=== PATIENT | female | born 1955 | race Asian ===

== ENCOUNTER 2018-05-24 08:52 | Observation (INO) | payer BC ==
[2018-05-24] MEDS ORDERED: METOPROLOL TAR 25 MG TAB ONE (09:35)
[2018-05-24] MEDS ORDERED: MORPHINE 2 MG/ML SYR ONE (09:35)
[2018-05-24] MEDS ORDERED: ONDANSETRON 4 MG/2 ML VIAL ONE (09:35)
[2018-05-24] MEDS ORDERED: ASPIRIN 81 MG CHEWABLE TABLET ONE (09:35)
[2018-05-24] MEDS ORDERED: FAMOTIDINE 20 MG/2 ML VIAL IV ONE (09:36)
[2018-05-24] MEDS ORDERED: NA CHLORIDE 0.9% 1,000 ML ONE (09:36)
[2018-05-24] MEDS ORDERED: ENOXAPARIN 80 MG/0.8 ML SQ ONE (09:36)
[2018-05-24 09:39] LABS: Absolute Lymphocytes (CBC) 1.6 K/uL (0.7-4.9); Absolute Monocytes 0.2 K/uL (0.1-1.3); Absolute Neutrophil 2.5 K/uL (1.8-8.0); Basophils % 0.8 % (0-1.3); Hematocrit 37.5 % (36.0-45.0); Lymphocytes % 35.8 % (15.3-44.8); MCH 33.3 pg (27.0-35.0); MCV 96.8 fL (80-100); MPV 7.5 fL (7.6-11.3); Monocytes % 4.3 % (3.3-12.3); RBC Red Blood Cell Count 3.87 M/uL (3.86-4.86)
[2018-05-24 09:40] LABS: Protime INR 0.98
[2018-05-24 09:54] LABS: ALT/SGPT 18 U/L (12-78); AST/SGOT 13 U/L (15-37); Albumin 3.7 g/dL (3.4-5.0); Alkaline Phosphatase 75 U/L (45-117); BUN Blood Urea Nitrogen 14 mg/dL (7-18); Bicarbonate 29 mmol/L (21-32); Bilirubin Direct 0.2 mg/dL (0-0.2); Bilirubin Total 0.4 mg/dL (0.2-1.0); Glucose Level 108 mg/dL (74-106); Magnesium 2.6 mg/dL (1.8-2.4); NT PRO-BNP 150 pg/mL (<125); Potassium 3.5 mmol/L (3.5-5.1); Protein, Total 7.2 g/dL (6.4-8.2); Sodium Level 143 mmol/L (136-145); Troponin (Emerg Dept Use Only) < 0.02 ng/mL (0.0-0.045)
--- NOTE | 2018-05-24 09:57 | RAD REPORT ---
EXAM DESCRIPTION: RAD - Chest Single View - 05/24/2018 9:27 am CLINICAL HISTORY: Left-sided chest pain radiating into the left arm COMPARISON: September 2010 TECHNIQUE: AP portable chest image was obtained 0922 hours . FINDINGS: No acute lung parenchymal process seen. Interstitial pattern is similar to the comparison. No mediastinal or hilar mass or lymphadenopathy suspected. Heart and vasculature are normal. No jay jay urable pleural effusion and no pneumothorax. No acute bony abnormality seen. No acute aortic findings suspected. IMPRESSION: No acute cardiopulmonary process. No significant change from comparison.
--- NOTE | 2018-05-24 09:58 | RAD REPORT ---
EXAM DESCRIPTION: US - Abdomen Exam Limited - 05/24/2018 9:38 am CLINICAL HISTORY: Abdominal pain COMPARISON: None. FINDINGS: A single large 2 centimeter gallstone is present near the fundus of the gallbladder. No ot her stones or sludge identifiable. There is no wall thickening or pericholecystic fluid. No common duct stone or biliary tree dilatation identified. IMPRESSION: Single large 2 centimeter gallstone. No other acute gallbladder or biliary tree finding.
--- NOTE | 2018-05-24 10:06 | ER ---
Nurse's Notes [facility] Name: Tess Deal Age: 62 yrs Sex: Female : 1955 Arrival Date: 05/24/2018 Time: 08:54 Bed 19 Private MD: Diagnosis: Chest pain, unspecified;Cholelithiasis Presentation: 05/24 08:56 Presenting complaint: Patient states: left sided chest pain with radiation to the left sv hand started last night with SOB. Transition of care: patient was not received from another setting of care. Onset of symptoms was May 23, 2018. Care prior to arrival: None. 08:56 Method Of Arrival: Ambulatory sv 08:56 Acuity: PRADEEP 3 sv 12:54 Risk Assessment: Do you want to hurt yourself or someone else? Patient reports no bp desire to harm self or others. Initial Sepsis Screen: Does the patient meet any 2 criteria? No. Patient's initial sepsis screen is negative. Does the patient have a suspected source of infection? No. Patient's initial sepsis screen is negative. Triage Assessment: 08:56 General: Appears in no apparent distress. uncomfortable, Behavior is calm, cooperative, sv appropriate for age. Pain: Complains of pain in anterior aspect of left upper chest and left breast Pain radiates to left hand Pain currently is 5 out of 10 on a pain scale. Pain began 1 day ago. Neuro: Level of Consciousness is awake, alert, obeys commands, Oriented to person, place, time, situation, Moves all extremities. Full function. Cardiovascular: Patient's skin is warm and dry. Respiratory: Reports shortness of breath Respiratory effort is even, unlabored, Respiratory pattern is regular, symmetrical. Historical: - Allergies: 08:57 No Known Allergies; sv - PSHx: 08:57 ; sv - Immunization history:: Adult Immunizations up to date. - Social history:: Smoking status: Patient/guardian denies using tobacco. - Family history:: not pertinent. - Ebola Screening: : Patient negative for fever greater than or equal to 101.5 degrees Fahrenheit, and additional compatible Ebola Virus Disease symptoms Patient denies exposure to infectious person Patient denies travel to an Ebola-affected area in the 21 days before illness onset No symptoms or risks identified at this time. Screenin:00 Abuse screen: Denies threats or abuse. Denies injuries from another. Nutritional bp screening: No deficits noted. Tuberculosis screening: No symptoms or risk factors identified. Fall Risk None identified. Assessment: 09:00 General: Appears in no apparent distress. comfortable, Behavior is calm, cooperative, bp appropriate for age. Pain: Complains of pain in chest and anterior aspect of left upper chest Pain currently is 6 out of 10 on a pain scale. Quality of pain is described as heavy. Pain: Pain radiates to left arm. Neuro: Level of Consciousness is awake, alert, obeys commands, Oriented to person, place, time, situation, Appropriate for age. Cardiovascular: Rhythm is sinus rhythm. Respiratory: Airway is patent Respiratory effort is even, unlabored, Respiratory pattern is regular, symmetrical. GI: No signs and/or symptoms were reported involving the gastrointestinal system. : No signs and/or symptoms were reported regarding the genitourinary system. EENT: No deficits noted. Derm: No deficits noted. Musculoskeletal: Circulation, motion, and sensation intact. Range of motion: intact in all extremities. 09:53 Reassessment: PT RETURNED FROM U/S. ECHO PENDING. bp 11:13 Reassessment: ECHO COMPLETED, ADMIT IN PROCESS. bp 12:51 Reassessment: PT TOMER WITH TECH FOR ADMIT. bp Vital Signs: 08:57 BP 139 / 85; Pulse 70; Resp 18; Temp 97.8; Pulse Ox 99% ; Weight 63.5 kg; Height 5 ft. sv 3 in. (160.02 cm); Pain 5/10; 09:00 BP 122 / 62; Pulse 67; Resp 14; Pulse Ox 99% ; bp 09:53 BP 121 / 72; Pulse 56; Resp 16; Pulse Ox 100% ; bp 11:13 BP 126 / 71; Pulse 47; Resp 19; Pulse Ox 98% ; bp 12:20 BP 140 / 86; Pulse 52; Resp 20; Pulse Ox 100% ; bp 08:57 Body Mass Index 24.80 (63.50 kg, 160.02 cm) sv ED Course: 08:54 Patient arrived in ED. tw3 08:56 Arm band placed on Patient placed in an exam room, on a stretcher. sv 08:57 Triage completed. sv 08:59 Marco Noland MD is Attending Physician. ayah 08:59 Gael Saha, NEVIN is Primary Nurse. bp 09:00 Patient has correct armband on for positive identification. Placed in gown. Bed in low bp position. Call light in reach. Side rails up X2. Adult w/ patient. residential monitor on. Pulse ox on. NIBP on. 09:00 Inserted saline lock: 20 gauge in right antecubital area, using aseptic technique. bp Blood collected. Patient maintains SpO2 saturation greater than 95% on room air. 09:20 Patient taken to ultrasound. luly 09:27 X-ray completed. Portable x-ray completed in exam room. Patient tolerated procedure jb2 well. 09:28 XRAY Chest (1 view) In Process Unspecified. EDMS 09:38 US Abdomen Limited In Process Unspecified. EDMS 09:47 Urine collected: clean catch specimen, clear. mh5 09:47 Urine Culture Sent. [facility] 10:05 Chela Blankenship MD is Hospitalizing Provider. ayah 12:53 No provider procedures requiring assistance completed. Patient admitted, IV remains in bp place. Administered Medications: 09:30 Drug: NS 0.9% 1000 ml Route: IV; Rate: 75 ml/hr; Site: right antecubital; bp 12:19 Follow up: IV Status: Infusion continued upon admission bp 09:30 Drug: Pepcid 20 mg Route: IVP; Site: right antecubital; bp 12:19 Follow up: Response: No adverse reaction bp 09:30 Drug: Aspirin 162 mg Route: PO; bp 12:19 Follow up: Response: No adverse reaction bp 09:30 Drug: morphine 2 mg Route: IVP; Site: right antecubital; bp 12:19 Follow up: Response: Pain is decreased bp 09:30 Drug: Zofran 4 mg Route: IVP; Site: right antecubital; bp 12:18 Follow up: Response: No adverse reaction bp 09:30 Drug: Lopressor 25 mg Route: PO; bp 12:18 Follow up: Response: No adverse reaction bp 09:30 Drug: Lovenox 1 mg/kg Route: Sub-Q; Site: left lower abdomen; bp 12:18 Follow up: Response: No adverse reaction bp Outcome: 10:05 Decision to Hospitalize by Provider. ayah 12:52 Admitted to Tele accompanied by tech, family with patient, via wheelchair, room 402, bp with chart, Report called to RAÚL ROONEY 12:54 Condition: improved bp 13:01 Patient left the ED. bp Signatures: Dispatcher [employer] Stefanie Bustillo RN RN Marco Farris MD MD cha Buechter, Jesse Tom Carvajal jd, Maria 5 Dagoberto, Val 3 Gael Saha, NEVIN RN bp Corrections: (The following items were deleted from the chart) 09:02 08:56 Presenting complaint: Patient states: left sided chest pain with radiation to the sv left hand started last night. sv
--- NOTE | 2018-05-24 10:06 | EDPHYS ---
Physician Documentation [facility] Name: Tess Deal Age: 62 yrs Sex: Female : 1955 Arrival Date: 05/24/2018 Time: 08:54 Bed 19 Private MD: ED Physician Marco Noland HPI: 05/24 09:12 This 62 yrs old Female presents to ER via Ambulatory with complaints of Chest ayah Pain. 09:12 The patient or guardian reports chest pain that is located primarily in the substernal ayah area, anterior chest wall, bilaterally. Onset: 3 day(s) ago. The pain radiates to the left arm. Associated signs and symptoms: Pertinent positives: shortness of breath. Associated signs and symptoms: Pertinent positives:. The chest pain is described as a pressure, squeezing. Modifying factors: The symptoms are alleviated by nothing. the symptoms are aggravated by supine. Severity of pain: At its worst the pain was moderate in the emergency department the pain is unchanged. Historical: - Allergies: 08:57 No Known Allergies; sv - PSHx: 08:57 ; sv - Immunization history:: Adult Immunizations up to date. - Social history:: Smoking status: Patient/guardian denies using tobacco. - Family history:: not pertinent. - Ebola Screening: : Patient negative for fever greater than or equal to 101.5 degrees Fahrenheit, and additional compatible Ebola Virus Disease symptoms Patient denies exposure to infectious person Patient denies travel to an Ebola-affected area in the 21 days before illness onset No symptoms or risks identified at this time. ROS: 09:12 Constitutional: Negative for fever, chills, and weight loss, Eyes: Negative for injury, ayah pain, redness, and discharge, ENT: Negative for injury, pain, and discharge, Neck: Negative for injury, pain, and swelling, Respiratory: Negative for shortness of breath, cough, wheezing, and pleuritic chest pain, Abdomen/GI: Negative for abdominal pain, nausea, vomiting, diarrhea, and constipation, Back: Negative for injury and pain, : Negative for injury, bleeding, discharge, and swelling, MS/Extremity: Negative for injury and deformity, Skin: Negative for injury, rash, and discoloration, Neuro: Negative for headache, weakness, numbness, tingling, and seizure, Psych: Negative for depression, anxiety, suicide ideation, homicidal ideation, and hallucinations, Allergy/Immunology: Negative for hives, rash, and allergies, Endocrine: Negative for neck swelling, polydipsia, polyuria, polyphagia, and marked weight changes, Hematologic/Lymphatic: Negative for swollen nodes, abnormal bleeding, and unusual bruising. 09:12 Cardiovascular: Positive for chest pain, of the chest. Exam: 09:12 Constitutional: This is a well developed, well nourished patient who is awake, alert, ayah and in no acute distress. Head/Face: Normocephalic, atraumatic. Eyes: Pupils equal round and reactive to light, extra-ocular motions intact. Lids and lashes normal. Conjunctiva and sclera are non-icteric and not injected. Cornea within normal limits. Periorbital areas with no swelling, redness, or edema. ENT: Nares patent. No nasal discharge, no septal abnormalities noted. Tympanic membranes are normal and external auditory canals are clear. Oropharynx with no redness, swelling, or masses, exudates, or evidence of obstruction, uvula midline. Mucous membranes moist. Neck: Trachea midline, no thyromegaly or masses palpated, and no cervical lymphadenopathy. Supple, full range of motion without nuchal rigidity, or vertebral point tenderness. No Meningismus. Chest/axilla: Normal chest wall appearance and motion. Nontender with no deformity. No lesions are appreciated. Cardiovascular: Regular rate and rhythm with a normal S1 and S2. No gallops, murmurs, or rubs. Normal PMI, no JVD. No pulse deficits. Respiratory: Lungs have equal breath sounds bilaterally, clear to auscultation and percussion. No rales, rhonchi or wheezes noted. No increased work of breathing, no retractions or nasal flaring. Abdomen/GI: Soft, non-tender, with normal bowel sounds. No distension or tympany. No guarding or rebound. No evidence of tenderness throughout. Back: No spinal tenderness. No costovertebral tenderness. Full range of motion. Skin: Warm, dry with normal turgor. Normal color with no rashes, no lesions, and no evidence of cellulitis. MS/ Extremity: Pulses equal, no cyanosis. Neurovascular intact. Full, normal range of motion. Neuro: Awake and alert, GCS 15, oriented to person, place, time, and situation. Cranial nerves II-XII grossly intact. Motor strength 5/5 in all extremities. Sensory grossly intact. Cerebellar exam normal. Normal gait. Psych: Awake, alert, with orientation to person, place and time. Behavior, mood, and affect are within normal limits. Vital Signs: 08:57 BP 139 / 85; Pulse 70; Resp 18; Temp 97.8; Pulse Ox 99% ; Weight 63.5 kg; Height 5 ft. sv 3 in. (160.02 cm); Pain 5/10; 09:00 BP 122 / 62; Pulse 67; Resp 14; Pulse Ox 99% ; bp 09:53 BP 121 / 72; Pulse 56; Resp 16; Pulse Ox 100% ; bp 11:13 BP 126 / 71; Pulse 47; Resp 19; Pulse Ox 98% ; bp 12:20 BP 140 / 86; Pulse 52; Resp 20; Pulse Ox 100% ; bp 08:57 Body Mass Index 24.80 (63.50 kg, 160.02 cm) sv MDM: 08:59 Patient medically screened. [facility] 09:15 Data reviewed: vital signs, nurses notes, lab test result(s), EKG, radiologic studies, [facility] plain films, ultrasound. 05/24 09:06 Order name: Basic Metabolic Panel; Complete Time: 10:03 bp 04 09:06 Order name: CBC with Diff; Complete Time: 10:03 bp 04 09:06 Order name: LFT's; Complete Time: 10:03 bp 12/04 09:06 Order name: Magnesium; Complete Time: 10:03 bp 05/24 09:06 Order name: NT PRO-BNP; Complete Time: 10:03 bp 05/24 09:06 Order name: PT-INR; Complete Time: 10:03 bp 12/04 09:06 Order name: Troponin (emerg Dept Use Only); Complete Time: 10:03 bp 05/24 09:06 Order name: XRAY Chest (1 view); Complete Time: 10:03 bp 05/24 09:11 Order name: Lipase; Complete Time: 10:03 ayah 05/24 09:11 Order name: Urine Culture [facility] 05/24 09:11 Order name: D-Dimer; Complete Time: 10:13 [facility] 05/24 09:11 Order name: Echo w/ Doppler [facility] 05/24 09:47 Order name: Urine Dipstick--Ancillary (enter results); Complete Time: 10:17 eb 05/24 09:01 Order name: EKG; Complete Time: 09:02 iw 05/24 09:01 Order name: EKG - Nurse/Tech; Complete Time: 09:05 iw 05/24 09:06 Order name: Cardiac monitoring; Complete Time: 09:06 bp 05/24 09:06 Order name: IV Saline Lock; Complete Time: 09:15 bp 05/24 09:06 Order name: Labs collected and sent; Complete Time: 09:15 bp 05/24 09:06 Order name: O2 Per Protocol; Complete Time: 09:06 bp 05/24 09:06 Order name: O2 Sat Monitoring; Complete Time: 09:06 bp 05/24 09:18 Order name: US Abdomen Limited; Complete Time: 10:03 ayah 04 09:11 Order name: Urine Dipstick-Ancillary (obtain specimen); Complete Time: 09:47 ayah Administered Medications: 09:30 Drug: NS 0.9% 1000 ml Route: IV; Rate: 75 ml/hr; Site: right antecubital; bp 12:19 Follow up: IV Status: Infusion continued upon admission bp 09:30 Drug: Pepcid 20 mg Route: IVP; Site: right antecubital; bp 12:19 Follow up: Response: No adverse reaction bp 09:30 Drug: Aspirin 162 mg Route: PO; bp 12:19 Follow up: Response: No adverse reaction bp 09:30 Drug: morphine 2 mg Route: IVP; Site: right antecubital; bp 12:19 Follow up: Response: Pain is decreased bp 09:30 Drug: Zofran 4 mg Route: IVP; Site: right antecubital; bp 12:18 Follow up: Response: No adverse reaction bp 09:30 Drug: Lopressor 25 mg Route: PO; bp 12:18 Follow up: Response: No adverse reaction bp 09:30 Drug: Lovenox 1 mg/kg Route: Sub-Q; Site: left lower abdomen; bp 12:18 Follow up: Response: No adverse reaction bp Disposition: 05/24/18 10:05 Hospitalization ordered by Chela Blankenship for Observation. Preliminary diagnosis are Chest pain, unspecified, Cholelithiasis. - Bed requested for Telemetry/MedSurg (observation). - Status is Observation. bp - Condition is Stable. - Problem is new. - Symptoms have improved. UTI on Admission? No Signatures: Dispatcher [employer] [facility] Stefanie Sorenson, RN RN Marco Farris MD MD cha Williams, Irene, RN Gael Sequeira, RN RN Brissa Ashley Corrections: (The following items were deleted from the chart) 09:19 09:12 Abdomen Complete+US.RAD.BRZ ordered. [facility] [place] 09:37 09:19 Abdomen Exam Limited ordered. [facility] 11:45 10:05 Hospitalization Ordered by Chela Blankenship MD for Observation. Preliminary eb diagnosis is Chest pain, unspecified; Cholelithiasis. Bed requested for Telemetry/MedSurg (observation). Status is Observation. Condition is Stable. Problem is new. Symptoms have improved. UTI on Admission? No. ayah 13:01 11:45 05/24/2018 10:05 Hospitalization Ordered by Chela Blankenship MD for Observation. bp Preliminary diagnosis is Chest pain, unspecified; Cholelithiasis. Bed requested for Telemetry/MedSurg (observation). Status is Observation. Condition is Stable. Problem is new. Symptoms have improved. UTI on Admission? No. eb
[2018-05-24 10:15] LABS: Urine Blood NEGATIVE (NEG); Urine Glucose NEGATIVE (NEG); Urine Protein NEGATIVE (NEG)
--- NOTE | 2018-05-24 12:01 | EKG ---
Test Date: 2018-05-24 Test Time: 09:06:37 [employer] Manager: DARELL MEASUREMENT RESULTS: Intervals: Rate: 72 NM: 184 QRSD: 90 QT: 422 QTc: 462 [place]: P: 69 NM: 184 QRS: 36 T: 40 INTERPRETIVE STATEMENTS: Normal sinus rhythm Normal ECG Compared to ECG 10/17/2010 05:18:33 No significant changes Electronically Signed On 05-24-18 12:00:16 GUNNER MATE by Bret Herniquez
--- NOTE | 2018-05-24 12:19 | ECHO ---
HEIGHT: ft in WEIGHT: lb oz DATE OF STUDY: 05/24/[address]: 2-DIMENSIONAL: YES M.MODE: YES DOPPLER: YES COLOR FLOW: YES TDS: NO PORTABLE: NO DEFINITY: NO BUBBLE STUDY: NO DIAGNOSIS: CHEST PAIN CARDIAC HISTORY: CATHERIZATION: NO SURGERY: NO PROSTHETIC VALVE: NO PACEMAKER: NO MEASUREMENTS (cm) DIASTOLIC (NORMALS) SYSTOLIC (NORMALS) IVSd 1.2 (0.6-1.2) LA Diam 3.1 (1.9-4.0) LVEF 60% LVIDd 3.4 (3.5-5.7) LVIDs 2.4 (2.0-3.5) %FS 31% LVPWd 1.2 (0.6-1.2) Ao Diam 2.8 (2.0-3.7) 2 DIMENSIONAL ASSESSMENT: RIGHT ATRIUM: NORMAL LEFT ATRIUM: NORMAL RIGHT VENTRICLE: NORMAL LEFT VENTRICLE: NORMAL TRICUSPID VALVE: NORMAL MITRAL VALVE: NORMAL PULMONIC VALVE: NORMAL AORTIC VALVE: NORMAL PERICARDIAL EFFUSION: NONE AORTIC ROOT: NORMAL LEFT VENTRICULAR WALL MOTION: NORMAL DOPPLER/COLOR FLOW: NORMAL COMMENTS: NORMAL LEFT VENTRICULAR SIZE AND FUNCTION. NO WALL MOTION ABNORMALITY. NO EFFUSION. TECHNOLOGIST: THEE ALBRIGHT RDCS
[2018-05-24] MEDS ORDERED: ONDANSETRON 4 MG/2 ML VIAL IV PRN (13:35)
[2018-05-24] MEDS ORDERED: ACETAMINOPHEN 500 MG TAB PO PRN (13:35)
[2018-05-24] MEDS ORDERED: NA CHLORIDE 0.9% 1,000 ML IV SCH (13:35)
[2018-05-24 14:43] VITALS: BMI 25.7
[2018-05-24] MEDS ORDERED: POTASSIUM CL SA 10 MEQ TAB PO ONE (14:46)
[2018-05-24] MEDS ORDERED: INFLUENZA VACCINE (for 3y+) 0.5 ML DOSE IMVAC ONE (16:00)
[2018-05-24 20:02] LABS: Urine Appearance CLEAR; Urine Bilirubin NEGATIVE (NEG); Urine Blood NEGATIVE (NEG); Urine Color YELLOW; Urine Glucose NEGATIVE (NEG); Urine Protein NEGATIVE (NEG); Urine Specific Gravity 1.015 (1.005-1.030); Urine Urobilinogen 0.2 mg/dL (0.2-1.0); Urine pH 6.5 (5.0-7.0)
[2018-05-24 20:03] LABS: Urine Microscopic Reflex ORDER UMIC
[2018-05-24 20:13] LABS: Urine Bacteria 20-50 /HPF (<20); Urine Culture Reflex Order REFLEXED; Urine RBC <5 /HPF (NONE SEEN)
[2018-05-24] MEDS ORDERED: ATORVASTATIN 20 MG TAB PO SCH (21:00)
[2018-05-24] MEDS ORDERED: ALPRAZOLAM 0.25 MG TABLET PO ONE (21:26)
[2018-05-24 22:27] VITALS: O2SAT 96
--- NOTE | 2018-05-25 06:33 | HP ---
Date of Admission: 05/24/2018 Chief Complaint: Chest pain. History Of Present Illness: This is a 62-year-old female patient who came into hospital emergency ro om today with complaints of chest pain for last 3 days. Patient describes her chest pain in the left chest area above the left breast and usually she says that this pain has happened in the evening sheila e for last 3 nights in a row. Last night, the pain was lot worse. The pain lasted for a few hours l ast night. Otherwise, previous 2 nights, it lasted just for about 1 hour. Pain did not radiate anyw here. No associated symptoms except felt like having little shortness of breath. She denies any fev er, chills, nausea, vomiting. No rash. No cough, cold, or congestion. No fall injury. No aggravat ing or relieving factor. She does exercise regularly and has not seen any limitation in her exercise or any chest pain with her exercise. Medications: Does not take any medications at home except occasionally takes aspirin. Allergies: NO KNOWN ALLERGIES. Review of Systems: Cardiovascular: As mentioned above. All other systems reviewed and negative. Family History: Significant for hypertension. Social History: Negative for smoking, alcohol use. Past Medical History: Significant for hypertension and gastroesophageal reflux disease. Past Surgical History: Hysterectomy and . Physical Examination: Vital Signs: Last temperature 99, pulse rate 52, respiratory rate 18, blood pressure 138/59. Height 5 feet 3 inches, weight 145 pounds. General: Awake, alert, oriented, not in distress. HEENT: Head atraumatic, normocephalic. Conjunctivae nonerythematous. Sclerae white. Mouth, no thr ush or edema noted. Ears/Nose, no mass, lesion, discharge noted. Neck: Supple. No JVD, lymph nodes, bruit, thyromegaly noted. Lungs: Bilateral good equal air entry. Clear to auscultation. No rhonchi. No rales. Heart: Normal heart sounds, no murmur or gallop. Abdomen: Soft, bowel sounds normal. No guarding, rigidity, tenderness, mass, hepatosplenomegaly, dis tention, or bruit noted. Extremities: No leg edema. No calf tenderness. Skin: No rash, ulcer, cellulitis. Lymphatics: No lymph node enlargement in neck, supraclavicular, infraclavicular region. Neuro: No focal neurological deficit. Chest: Unremarkable. External Genitalia: Deferred. Rectal: Deferred. Laboratory Data: White count 4.4, hemoglobin 12.9, platelets 245. Sodium 143, potassium 3.5, chlori de 108, bicarb 29, BUN 14, creatinine 0.7, glucose 108. Liver function tests unremarkable. Troponin less than 0.02 x2. Lipase 112. Urinalysis negative. Electrocardiogram: Normal sinus rhythm, normal EKG, no acute ST-T changes. Chest x-ray: No acute c ardiopulmonary changes. Echocardiogram shows ejection fraction 60%, unremarkable echocardiogram and abdominal ultrasound which was limited right upper quadrant ultrasound, shows single large 2 cm galls tone, no other acute gallbladder findings. Impression: 1.Chest pain. 2.Gastroesophageal reflux disease. 3.Hypertension. 4.Gallstones. Plan: Admit the patient to hospital for further evaluation and management of this problem. The francisco ent is going to be admitted to telemetry floor. We will consult Cardiology, get serial cardiac enzym es tomorrow morning. We will have a stress test done on her. Her pain appears to be atypical in mik ure. We should consider elective outpatient general surgeon consultation for possibility of gallblad nathaniel surgery as her pain is atypical in nature and could be due to gallstone problem. Details were di scussed with the patient. So far [place] has been ruled out and the patient will have stress test tomorro w. We will consult Cardiology in the morning. Details and plan of treatment discussed with the francisco ent and her who was at the bedside. ASAD/PILY Voice ID: [id number]
[2018-05-25 06:42] LABS: Absolute Lymphocytes (CBC) 1.3 K/uL (0.7-4.9); Absolute Monocytes 0.2 K/uL (0.1-1.3); Absolute Neutrophil 2.2 K/uL (1.8-8.0); Basophils % 0.5 % (0-1.3); Eosinophils % 1.7 % (0-4.4); Hematocrit 36.5 % (36.0-45.0); Lymphocytes % 34.6 % (15.3-44.8); MCH 33.2 pg (27.0-35.0); MCV 97.5 fL (80-100); MPV 7.7 fL (7.6-11.3); Monocytes % 6.1 % (3.3-12.3); RBC Red Blood Cell Count 3.75 M/uL (3.86-4.86)
[2018-05-25 07:03] LABS: Albumin 3.4 g/dL (3.4-5.0); Bilirubin Total 0.5 mg/dL (0.2-1.0); Magnesium 2.7 mg/dL (1.8-2.4); Phosphorus 3.3 mg/dL (2.5-4.9); Potassium 3.8 mmol/L (3.5-5.1); Protein, Total 6.8 g/dL (6.4-8.2); Thyroid Stimulating Hormone 1.44 uIU/mL (0.360-3.740)
[2018-05-25] MEDS ORDERED: REGADENOSON 0.4 MG/5 ML SYR IV ONE (08:51)
[2018-05-25] MEDS ORDERED: POTASSIUM 25 MEQ EFFERV TAB PO ONE (09:00)
[2018-05-25] MEDS ORDERED: ASPIRIN EC 81 MG TAB PO SCH (09:00)
--- NOTE | 2018-05-25 12:27 | CON ---
A 62-year-old woman. History Of Present Illness: Ms. Deal came to the hospital because of chest pain. The chest pain i s central chest. Several years ago, she had a similar pain. Stress tests were normal. That was don e at a place where we are unlikely to get any records out of state. Since she has been in our hospit al, her EKG is normal, enzymes are normal. She does not have diabetes, hypertension, dyslipidemia. Does not use tobacco. Family History: Negative for accelerated heart disease. Physical Examination: Vital Signs: 5 feet 3 inches, 145 pounds. HEENT: Normal. Lungs: Clear. Carotids no bruit. Heart: Normal. Extremities: Normal. Impression: This is a noncardiac pain. At this point, we have already scheduled echo and stress gabby t. She is known to have a gallstone and it is very likely the surgeon will recommend removal of the gallbladder. We should have the results of her stress tests by the end of the day. Hopefully, she w ill not have any contraindication. JUVENTINO Voice ID: [id number] Report ID: [id number]
--- NOTE | 2018-05-25 13:29 | TREADPHA ---
DX: CHEST PAIN Date of Study: 05/25/2018 Ht: 5 3 Wt: 145 lb 0 oz Consulting Physician: SALVATORE MEDICATIONS: TYLENOL, ASPIRIN, LIPITOR, K-LYTE, LOPRESSOR HISTORY: 62 YEAR OLD FEMALE WITH COMPLAINTS OF CHEST PAIN. HISTORY OF ANXIETY. PHYSICIAL EXAMINATION: RESTING B.P.: 151/67 RESTING H.R.: 56 RESTING EKG: NORMAL PROTOCOL: LEXISCAN EXERCISE TIME: 3:30 B.P. AT PEAK STRESS: 131/61 IMPRESSION: LEXISCAN INJECTED, CARDIOLITE INJECTED PER PROTOCOL. SEE NUCLEAR MEDICINE REPORT. NO SUPRAVENTRICULAR TACHYCARDIA. NO VENTRICULAR TACHYCARDIA. OCCASIONAL PRE AND POST PREMATURE VENTRICULAR COMPLEXES. DENIED CHEST PAIN. NON-DIAGNOSTIC ELECTROCARDIOGRAM WITH LEXISCAN STRESS.
--- NOTE | 2018-05-25 14:04 | RAD REPORT ---
EXAM DESCRIPTION: NM - Rest Stress Cardiac Imaging - 05/25/2018 1:55 pm CLINICAL HISTORY: Chest pain COMPARISON: None. TECHNIQUE: The patient was administered approximately 10 mCi of Tc 99m Sestamibi prior to resting SP ECT imaging of the heart. The patient was then administered approximately 30 mCi of Tc 99m Sestamibi following exercise or pharmacologic stress. Multiplanar SPECT images were reviewed. FINDINGS: The end diastolic volume is 68 ml, the end systolic volume is 19 ml, and the ejection frac tion is 72 %. Physiologic distribution of the radiopharmaceutical through the myocardium is noted. No stress induce d ischemic defect is seen to suggest stress induced ischemia. No fixed defect is seen to suggest hibe rnating myocardium or scarred myocardium. IMPRESSION: No stress-induced ischemia. No scarring suspected. No suspicious findings noted. Ventricular volumes and ejection fraction are normal range.
[2018-05-25 17:24] VITALS: BP 138/70; TEMP 98.5
--- NOTE | 2018-05-25 18:08 | CON ---
Date of Consultation: 05/25/2018 Reason: Cholelithiasis. History Of Present Illness: The patient is a 62-year-old female, who presented to the emergency room with 3-day history of left chest pain above the left breast, it happens in the evening time, last fo r about an hour. This pain is unrelated to eating, and no associated nausea, vomiting, bloating, bel rod, or heartburn. Food sometimes does aggravate her abdomen, but not this current time. No blood in her stool. No sore throat, runny nose, cough, headaches, or dizziness. No chest pain. Review of Systems: Otherwise, unremarkable. Past Medical History: Significant for hypertension. Past Surgical History: Hysterectomy and . Allergies: NO ALLERGIES. Social History: She does not smoke or drink. Family History: Noncontributory. Physical Examination: Vital Signs: Stable. She is currently afebrile. General: She is awake, alert, oriented x3. Head and Neck: Cranial nerves 2 through 12 are grossly within normal limits. Neck: No neck masses. No JVD. No icterus. Chest: Clear. Heart: S1, S2. Abdomen: Soft, nondistended, nontender. Positive bowel sounds. Extremities: Neurovascularly intact. Neuro: Nonfocal. Diagnostic Data: White count is 3.9, there is no left shift. The remainder of the CBC is essentiall y unremarkable. INR is 0.98. Chemistry, LFTs are within normal limits. Triglyceride is slightly el evated. Her troponin 1 has been normal. Her echocardiogram was normal. Her electrocardiogram shows normal. She is awaiting a stress test. She did have an abdominal ultrasound which showed a single, large, 2-cm gallstones in the fundus. No common duct or biliary tree dilatation identified, and no wall thickening or pericholecystic fluid. Assessment: A 62-year-old female with left chest pain and cholelithiasis, maybe some mild biliary co lic. Recommendations: At this time, the patient needs to be completely worked up by the Cardiology servic e and once she is cleared, she can be discharged home and can have workup for gallbladder as an outpa tient. We will see if we can get a better history at that time regarding biliary colic. If not, may need a HIDA scan. Plan of care discussed in detail with Dr. Cohen. NICOLE/PILY Voice ID: [id number] Report ID: [id number]
--- NOTE | 2018-06-05 14:53 | DS ---
Date of Discharge: 05/25/2018 Disposition: Discharged to go home. Physical Examination: HEENT: Unremarkable. Lungs: Clear to auscultation. Heart: Sounds normal. Abdomen: Soft. Bowel sounds normal. No guarding, rigidity, tenderness, or distention. Extremities: No leg edema. Discharge Medications/instructions: 1.Take [id number] Nexium 20 mg daily for 2 weeks. 2.Follow up with Dr. Riddle in 1 to 2 weeks. 3.Follow up at my office in June 2018, and the patient to call office for appointment. Hospital Course: A 62-year-old female patient, who was admitted to the hospital with complaints of c hest pain. Please see dictated H and P for more information. After the patient was evaluated in the ER, she was admitted to the hospital. Her initial CBC was unremarkable. Cardiac enzymes, troponin less than 0.02. Chemistry was unremarka ble. Her glucose, when she came in was 108, repeat fasting glucose was 86. Fasting lipid profile, L DL 86, total cholesterol 170, triglyceride 151. HDL 54. TSH 1.4. Lipase was 112. Troponin was les s than 0.02. Her chest x-ray did not show any acute ST-T changes. Abdominal ultrasound showed evidence of a singl e large 2 cm gallstone and echocardiogram showed normal ejection fraction of 60% and it was a normal echocardiogram. Cardiology consultation was obtained from Dr. Arrieta, who recommended stress test, w hich was done. The patient had a nuclear stress test, which was negative for stress-induced ischemia . We did obtain General Surgery consultation from Dr. Riddle, who will follow up on outpatient basis and then he will plan, if any further intervention needed or not at that time. The patient was made aware of the findings of all the test results. Final Diagnoses: 1.Chest pain. 2.Gastroesophageal reflux disease. 3.Gallstones. 4.Hypertension. ASAD/MODL Voice ID: [id number] Report ID: [id number]
== END 2018-05-25 17:03 | disposition home or self-care (01) ==
LOC: ER 08:52 → 4TH 12:58
PROVIDERS: ADMIT Family Medicine; ATTEND Internal Medicine
DX: R07.9 Chest pain, unspecified (principal); K21.9 Gastro-esophageal reflux disease without esophagitis; K80.80 Other cholelithiasis without obstruction; I10 Essential (primary) hypertension; Z23 Encounter for immunization
CPT/HCPCS: 36415; 71045; 76705; 78452; 80048; 80053; 80061; 80076; 81003; 81015; 83690; 83735; 83880; 84100; 84443; 84484; 85025; 85379; 85610; 87086; 87088; 93005; 93017; 93306; 96361; 96372; 96374; 96375; 99285; A9500; G0008; G0378; J1650; J2270; J2405; J2785; J7030; Q2035

== ENCOUNTER 2021-04-26 07:36 | Inpatient (IN) | payer BC, OTHER ==
[2021-04-26] MEDS ORDERED: LORazepam 2 MG/ML VIAL ONE (08:21)
[2021-04-26 08:24] LABS: Absolute Lymphocytes (CBC) 1.6 K/uL (0.7-4.9); Basophils % 0.7 % (0-1.3); Hematocrit 35.3 % (36.0-45.0); Lymphocytes % 31.7 % (15.3-44.8); RBC Red Blood Cell Count 3.64 M/uL (3.86-4.86)
[2021-04-26 08:27] LABS: Protime INR 1.01
--- NOTE | 2021-04-26 08:32 | RAD REPORT ---
EXAM DESCRIPTION: RAD - Chest Single View - 04/26/2021 8:26 am CLINICAL HISTORY: CONGESTION COMPARISON: Chest Single View dated 05/24/2018; CHEST SINGLE VIEW dated 10/16/2010; CHEST PA AND LAT 2 VIEW dated 12/10/2009 FINDINGS: Lines: None. Lungs: No evidence of edema or pneumonia. Pleural: No significant pleural effusions or pneumothorax. Cardiac: The heart size is within normal limits. Bones: No acute fractures. Other: IMPRESSION: No acute cardiopulmonary disease.
[2021-04-26 08:41] LABS: ALT/SGPT 20 U/L (12-78); AST/SGOT 17 U/L (15-37); Albumin 3.9 g/dL (3.4-5.0); Alkaline Phosphatase 73 U/L (45-117); BUN Blood Urea Nitrogen 10 mg/dL (7-18); Bicarbonate 25 mmol/L (21-32); Bilirubin Direct 0.2 mg/dL (0-0.2); Bilirubin Total 0.5 mg/dL (0.2-1.0); Glucose Level 105 mg/dL (74-106); Magnesium 2.7 mg/dL (1.8-2.4); NT PRO-BNP 286 pg/mL (<125); Potassium 3.7 mmol/L (3.5-5.1); Protein, Total 7.9 g/dL (6.4-8.2); Sodium Level 143 mmol/L (136-145); Troponin (Emerg Dept Use Only) < 0.02 ng/mL (0.0-0.045)
--- NOTE | 2021-04-26 08:58 | ER ---
Nurse's Notes [facility] Name: Tess Deal Age: 65 yrs Sex: Female : 1955 Arrival Date: 04/26/2021 Time: 07:42 Bed 7 Private MD: Greg Cohen C Diagnosis: Chest pain, unspecified;Essential (primary) hypertension Presentation: 04/26 07:52 Chief complaint: Patient states: "my blood pressure was high this morning at 180/100 jd3 and having some chest pain and neck pain. this has been going on and off for a month and seeing doctors to get a different blood pressure medications and it just doesn't seem to help. I have taken 3 Nitro and my blood pressure medication and nothing has helped this morning.". Coronavirus screen: At this time, the client does not indicate any symptoms associated with coronavirus-19. Ebola Screen: Patient negative for fever greater than or equal to 101.5 degrees Fahrenheit, and additional compatible Ebola Virus Disease symptoms. Initial Sepsis Screen: Does the patient meet any 2 criteria? No. Patient's initial sepsis screen is negative. Does the patient have a suspected source of infection? No. Patient's initial sepsis screen is negative. Risk Assessment: Do you want to hurt yourself or someone else? Patient reports no desire to harm self or others. Onset of symptoms was April 26, 2021. 07:52 Method Of Arrival: Ambulatory jd3 07:52 Acuity: PRADEEP 3 jd3 Historical: - Allergies: 07:56 No Known Allergies; jd3 - Home Meds: 07:56 olmesartan oral [Active]; Atenolol Oral [Active]; Nitroglycerin Oral [Active]; jd3 - PMHx: 07:56 Hypertensive disorder; Anxiety; jd3 - PSHx: 07:56 Cholecystectomy; section; jd3 - Immunization history:: Adult Immunizations unknown, Client reports having NOT received the Covid vaccine. - Social history:: Smoking status: Patient denies any tobacco usage or history of. Patient/guardian denies using alcohol, street drugs, The patient lives with family. - Family history:: not pertinent. Screenin:01 Abuse screen: Denies threats or abuse. Nutritional screening: No deficits noted. jd3 Tuberculosis screening: No symptoms or risk factors identified. Fall Risk Ambulatory Aid- None/Bed Rest/Nurse Assist (0 pts). Gait- Normal/Bed Rest/Wheelchair (0 pts) Mental Status- Oriented to own ability (0 pts). Total Higuera Fall Scale indicates No Risk (0-24 pts). Assessment: 08:18 General: Appears in no apparent distress. comfortable, Behavior is calm, cooperative, jd3 anxious. Pain: Denies pain. Neuro: Level of Consciousness is awake, alert, obeys commands, Oriented to person, place, time, situation. Cardiovascular: Heart tones S1 S2 Capillary refill < 3 seconds Patient's skin is warm and dry. Respiratory: Airway is patent Respiratory effort is even, unlabored, Respiratory pattern is regular, symmetrical, Breath sounds are clear bilaterally. Denies shortness of breath. 10:36 Reassessment: Patient and/or family updated on plan of care and expected duration. Pain jd3 level reassessed. Patient is alert, oriented x 3, equal unlabored respirations, skin warm/dry/pink. pt resting with eyes closed, no distress noted at this time. 11:52 Reassessment: Patient and/or family updated on plan of care and expected duration. Pain jd3 level reassessed. Patient is alert, oriented x 3, equal unlabored respirations, skin warm/dry/pink. pt stable at time of admission, transfers with ert via stretcher. Vital Signs: 07:58 BP 143 / 55; Pulse 50; Resp 17 S; Temp 98.4(O); Pulse Ox 99% on R/A; Weight 63.5 kg jd3 (R); Height 5 ft. 3 in. (160.02 cm) (R); Pain 8/10; 09:16 BP 117 / 70; Pulse 47; Resp 16 S; Pulse Ox 97% on R/A; Pain 2/10; jd3 10:37 BP 115 / 65; Pulse 49; Resp 20 S; Pulse Ox 100% on R/A; Pain 0/10; jd3 07:58 Body Mass Index 24.80 (63.50 kg, 160.02 cm) jd3 ED Course: 07:42 Patient arrived in ED. mr 07:43 Greg Cohen MD is Private Physician. mr 07:43 Theresa Lazo MD is Attending Physician. ma2 07:45 Nikolay Bowles RN is Primary Nurse. jd3 07:56 Triage completed. jd3 07:59 Arm band placed on. jd3 08:01 Patient has correct armband on for positive identification. Bed in low position. Call jzoe light in reach. Side rails up X 1. Adult w/ patient. nurse monitoring on. Pulse ox on. NIBP on. 08:25 Inserted saline lock: 20 gauge in left antecubital area, using aseptic technique. Blood jd3 collected. Missed attempt(s): 18 gauge in right antecubital area. Bleeding controlled, band aid applied, catheter tip intact. 08:26 XRAY Chest (1 view) In Process Unspecified. EDMS 08:57 Stevie Georges MD is Hospitalizing Provider. ma2 11:36 Report given to Norma bethea. jd3 11:51 No provider procedures requiring assistance completed. jd3 11:52 Patient admitted, IV remains in place. jd3 Administered Medications: 08:24 Drug: Ativan (LORazepam) 1 mg Route: IVP; Site: left antecubital; jd3 09:15 Follow up: Response: No adverse reaction; Anxiety decreased; RASS: Drowsy (-1) jd3 09:15 Drug: Aspirin Chewable Tablet 324 mg Route: PO; jd3 10:15 Follow up: Response: No adverse reaction jd3 Outcome: 08:57 Decision to Hospitalize by Provider. ma2 11:51 Admitted to Med/surg accompanied by tech, via stretcher, Report called to norma bethea jd3 11:51 Condition: stable 11:53 Patient left the ED. jd3 Signatures: Dispatcher [employer] LINDAKS Megan Lopez Jonathon, RN RN jd3 Alzahri, Mohammad, MD MD ma2 Corrections: (The following items were deleted from the chart) 16:07 08:18 GI: varun jzoe
--- NOTE | 2021-04-26 08:58 | EDPHYS ---
Physician Documentation [facility] Name: Tess Deal Age: 65 yrs Sex: Female : 1955 Arrival Date: 04/26/2021 Time: 07:42 Bed 7 Private MD: Greg Cohen C ED Physician Theresa Lazo HPI: 04/26 08:08 This 65 yrs old Female presents to ER via Ambulatory with complaints of chest ma2 pain and High Blood Pressure. 08:08 Onset: The symptoms/episode began/occurred gradually, 2 day(s) ago. Associated signs ma2 and symptoms: Pertinent negatives: dyspnea, nausea, vomiting, weakness. Severity of symptoms: At its worst the blood pressure was moderate, in the emergency department the blood pressure is unchanged. The patient has not experienced similar symptoms in the past. Historical: - Allergies: 07:56 No Known Allergies; jd3 - Home Meds: 07:56 olmesartan oral [Active]; Atenolol Oral [Active]; Nitroglycerin Oral [Active]; jd3 - PMHx: 07:56 Hypertensive disorder; Anxiety; jd3 - PSHx: 07:56 Cholecystectomy; section; jd3 - Immunization history:: Adult Immunizations unknown, Client reports having NOT received the Covid vaccine. - Social history:: Smoking status: Patient denies any tobacco usage or history of. Patient/guardian denies using alcohol, street drugs, The patient lives with family. - Family history:: not pertinent. ROS: 08:08 Constitutional: Negative for fever, chills, and weight loss. ma2 08:08 All other systems are negative. Exam: 08:08 Constitutional: This is a well developed, well nourished patient who is awake, alert, ma2 and in no acute distress. Head/Face: Normocephalic, atraumatic. Eyes: Pupils equal round and reactive to light, extra-ocular motions intact. Lids and lashes normal. Conjunctiva and sclera are non-icteric and not injected. Cornea within normal limits. Periorbital areas with no swelling, redness, or edema. ENT: Nares patent. No nasal discharge, no septal abnormalities noted. Tympanic membranes are normal and external auditory canals are clear. Oropharynx with no redness, swelling, or masses, exudates, or evidence of obstruction, uvula midline. Mucous membranes moist. Neck: Trachea midline, no thyromegaly or masses palpated, and no cervical lymphadenopathy. Supple, full range of motion without nuchal rigidity, or vertebral point tenderness. No Meningismus. Chest/axilla: Normal chest wall appearance and motion. Nontender with no deformity. No lesions are appreciated. Cardiovascular: Regular rate and rhythm with a normal S1 and S2. No gallops, murmurs, or rubs. Normal PMI, no JVD. No pulse deficits. Respiratory: Lungs have equal breath sounds bilaterally, clear to auscultation and percussion. No rales, rhonchi or wheezes noted. No increased work of breathing, no retractions or nasal flaring. Abdomen/GI: Soft, non-tender, with normal bowel sounds. No distension or tympany. No guarding or rebound. No evidence of tenderness throughout. Skin: Warm, dry with normal turgor. Normal color with no rashes, no lesions, and no evidence of cellulitis. MS/ Extremity: Pulses equal, no cyanosis. Neurovascular intact. Full, normal range of motion. Neuro: Awake and alert, GCS 15, oriented to person, place, time, and situation. Cranial nerves II-XII grossly intact. Motor strength 5/5 in all extremities. Sensory grossly intact. Cerebellar exam normal. Normal gait. Vital Signs: 07:58 BP 143 / 55; Pulse 50; Resp 17 S; Temp 98.4(O); Pulse Ox 99% on R/A; Weight 63.5 kg jd3 (R); Height 5 ft. 3 in. (160.02 cm) (R); Pain 8/10; 09:16 BP 117 / 70; Pulse 47; Resp 16 S; Pulse Ox 97% on R/A; Pain 2/10; jd3 10:37 BP 115 / 65; Pulse 49; Resp 20 S; Pulse Ox 100% on R/A; Pain 0/10; jd3 07:58 Body Mass Index 24.80 (63.50 kg, 160.02 cm) jd3 MDM: 07:43 Patient medically screened. mi2 08:08 Differential diagnosis: htn, chest pain, vs anxiety, angina. ma2 08:56 Data reviewed: vital signs, nurses notes. Counseling: I had a detailed discussion with ma2 the patient and/or guardian regarding: the historical points, exam findings, and any diagnostic results supporting the discharge/admit diagnosis, the presence of at least one elevated blood pressure reading (>120/80) during this emergency department visit, the need for outpatient follow up. Response to treatment: the patient's symptoms have markedly improved after treatment. 04/26 07:44 Order name: Basic Metabolic Panel; Complete Time: 08:54 ma2 04/26 07:44 Order name: CBC with Diff; Complete Time: 08:30 ma2 04/26 07:44 Order name: LFT's; Complete Time: 08:54 ma2 04/26 07:44 Order name: Magnesium; Complete Time: 08:54 ma2 04/26 07:44 Order name: NT PRO-BNP; Complete Time: 08:54 ma2 04/26 07:44 Order name: PT-INR; Complete Time: 08:40 ma2 04/26 07:44 Order name: Troponin (emerg Dept Use Only); Complete Time: 08:54 ma2 04/26 08:58 Order name: COVID-19 SARS RT PCR (Document "Date of Onset" if Symptomatic) ma2 04/26 10:28 Order name: Thyroid Stimulating Hormone EDMS 04/26 10:28 Order name: CBC with Automated Diff EDMS 04/26 10:28 Order name: CBC with Automated Diff EDMS 04/26 10:28 Order name: CBC with Automated Diff EDMS 04/26 10:28 Order name: CBC with Automated Diff EDMS 04/26 10:28 Order name: Comprehensive Metabolic Panel EDMS 04/26 07:44 Order name: XRAY Chest (1 view); Complete Time: 08:40 ma2 04/26 07:44 Order name: EKG; Complete Time: 07:45 ma2 04/26 07:44 Order name: Cardiac monitoring; Complete Time: 08:01 ma2 04/26 07:44 Order name: EKG - Nurse/Tech; Complete Time: 08:17 ma2 04/26 07:44 Order name: IV Saline Lock; Complete Time: 08:17 ma2 04/26 07:44 Order name: Labs collected and sent; Complete Time: 08:17 ma2 04/26 07:44 Order name: O2 Per Protocol; Complete Time: 08:01 ma2 04/26 10:28 Order name: CONS Physician Consult EDWA 04/26 10:28 Order name: Echo with Doppler EDWA 04/26 10:28 Order name: Comprehensive Metabolic Panel EDWA 04/26 10:28 Order name: Comprehensive Metabolic Panel EDWA 04/26 10:28 Order name: Comprehensive Metabolic Panel EDWA 04/26 10:30 Order name: Heart Healthy EDWA 04/26 10:31 Order name: Troponin I EDWA 04/26 07:44 Order name: O2 Sat Monitoring; Complete Time: 08:01 ma2 Administered Medications: 08:24 Drug: Ativan (LORazepam) 1 mg Route: IVP; Site: left antecubital; jd3 09:15 Follow up: Response: No adverse reaction; Anxiety decreased; RASS: Drowsy (-1) jd3 09:15 Drug: Aspirin Chewable Tablet 324 mg Route: PO; jd3 10:15 Follow up: Response: No adverse reaction jd3 Disposition Summary: 04/26/21 08:57 Hospitalization Ordered Hospitalization Status: Observation ma2 Provider: Stevie Georges Location: Telemetry/MedSurg (observation) ma2 Condition: Stable ma2 Problem: new ma2 Symptoms: are unchanged ma2 Bed/Room Type: Standard mi2 Room Assignment: 209(04/26/21 11:26) dw Diagnosis - Chest pain, unspecified ma2 - Essential (primary) hypertension ma2 Forms: - Medication Reconciliation Form ma2 - SBAR form ma2 Signatures: Dispatcher [employer] Bess Quan RN RN dw Davies, Jonathon, RN RN jd3 Alzahri, Mohammad, MD MD ma2 Corrections: (The following items were deleted from the chart) 08:57 ma2 dw
[2021-04-26] MEDS ORDERED: ASPIRIN 81 MG CHEWABLE TABLET ONE (09:06)
[2021-04-26] MEDS ORDERED: HYDRALAZINE HCL 20 MG/ML VIAL IV PRN (10:29)
--- NOTE | 2021-04-26 10:37 | P.HP ---
Certification for Inpatient Patient admitted to: Inpatient With expected LOS: >2 Midnights Patient will require the following post-hospital care: None Practitioner: I am a practitioner with admitting privileges, knowledge of patient current condition, hospital course, and medical plan of care. Services: Services provided to patient in accordance with Admission requirements found in Title 42 Section 412.3 of the Code of Federal Regulations Patient History Date of Service: 04/26/21 Primary Care Provider: Destini Reason for admission: chest pain History of Present Illness: Office patient of [facility] with HTN, on losartan, hydroxine. She had some left side chest pain yesterday. She had no radiation. The patient has recently been started atenolol 25mg and was increased to 50mg aprox a week or two. She had no improvement yesterday with NTG. She was found to be sinus bradycardia in the ER. She had a negative troponin. The patient is currently sitting in her ER bed comfortable. She was very anxious. But has recieved some ativan Allergies No Known Allergies Allergy (Unverified 05/24/18 10:22) Home Medications: NK [No Home Meds] 05/24/18 - Past Medical/Surgical History Diabetic: No -: anxiety -: hysterectomy -: - Family History Mother -: Heart disease - Social History Alcohol use: Yes CD- Drugs: No Caffeine use: Yes Review of Systems 10-point ROS is otherwise unremarkable Cardiovascular: Chest Pain Physical Examination - Physical Exam General: Alert, In no apparent distress HEENT: Atraumatic, PERRLA, Mucous membr. moist/pink, EOMI, Sclerae nonicteric Neck: Supple, 2+ carotid pulse no bruit, No LAD, Without JVD or thyroid abnormality Respiratory: Clear to auscultation bilaterally, Normal air movement Cardiovascular: Regular rate/rhythm, Normal S1 S2 Gastrointestinal: Normal bowel sounds, No tenderness Musculoskeletal: No tenderness Integumentary: No rashes Neurological: Normal gait, Normal speech, Normal strength at 5/5 x4 extr, Normal tone, Normal affect Lymphatics: No axilla or inguinal lymphadenopathy - Studies Laboratory Data (last 24 hrs) 04/26/21 08:11: PT 11.6, INR 1.01 04/26/21 08:11: WBC 5.10, Hgb 12.0, Hct 35.3 L, Plt Count 244 04/26/21 08:11: Sodium 143, Potassium 3.7, BUN 10, Creatinine 0.76, Glucose 105, Magnesium 2.7 H, Total Bilirubin 0.5, AST 17, ALT 20, Alkaline Phosphatase 73 Assessment and Plan - Problems (Diagnosis) (1) HTN (hypertension) Current Visit: Yes Status: Acute Plan: will continue the losartan tomorrow. Need to check my office notes for this. However she is well controlled today. Qualifiers: Hypertension type: primary hypertension Qualified Code(s): I10 - Essential (primary) hypertension (2) Bradycardia Current Visit: Yes Status: Acute Plan: will hold the atenol and keep her on telemetry. Consult to Dr. Flores and will check an echocardiogram. we can restart her on atenolol 25mg po bid if she bec omes tachycardic during the night (3) Chest pain Current Visit: No Status: Acute Plan: Will continue tele. Check serial troponins. Most likely iatrogenic. Qualifiers: Chest pain type: unspecified Qualified Code(s): R07.9 - Chest pain, unspecified Discharge Plan: Home Plan to discharge in: 48 Hours - Advance Directives Does patient have a Living Will: No Does patient have a Durable POA for Healthcare: No - Code Status/Comfort Care Code Status Assessed: No Code Status: Full Code Physician Review: Patient Assessed, Agree with Above Assessment and Plan Critical Care: No Time Spent Managing Pts Care (In Minutes): 45
[2021-04-26 15:36] VITALS: BMI 24.7
[2021-04-26] MEDS ORDERED: ENOXAPARIN 40 MG/0.4 ML SQ SCH (17:00)
--- NOTE | 2021-04-26 20:00 | CON ---
Date of Consultation: 04/26/2021 Reason For Consultation: Chest pain. History Of Present Illness: This is a 65-year-old female, history of hypertension, presented to the hospital with left-sided chest pain, not related to exertion. She has hypertension, recently started on atenolol and she said that in the evenings, the blood pressure was high so she took nitroglycerin and started having chest pain on the left side, but did not get better and now she is pain free. Th e patient follows Dr. Henriquez for Cardiology care. Past Medical History: Hypertension. Medications: Refer reconciliation sheet for detailed list. Allergies: NO KNOWN DRUG ALLERGIES. Family History: No premature coronary artery disease or cancer. Past Surgical History: Hysterectomy and C-sections. Social History: She does not smoke or drink. Does not use any drugs. Review of Systems: All systems reviewed. They were all negative except for what mentioned in the HPI. Physical Examination: Vital Signs: Temperature is 97.7, pulse is 46, breathing at 14, blood pressure 132/65, and saturatin g 100%. General: Pleasant middle-aged female, in no apparent distress. Head and Neck: Pupils are equal and reactive to light. Intact eye movements. No JVD. No cervical lymphadenopathy. Neck: Supple. Thyroid is not enlarged. Lungs: Clear to auscultation bilaterally. No rhonchi, rales, or crackles. No accessory muscle use. Heart: Regular rate and rhythm. No extra sounds. Abdomen: Soft, nontender. Bowel sounds positive. No organomegaly. No masses or hernia. No rigidi ty or rebound.. Extremities: No edema, clubbing, or cyanosis. Intact muscle. Skin: No rashes. Neurologic: Alert, awake, and oriented x3. No focal deficits appreciated. Investigations: Troponins x2 were negative. Creatinine 0.76. Hemoglobin is 12. EKG without acute specific abnormalities. Assessment And Recommendations: 1.Chest pain, atypical. Cardiac enzymes are negative. From my standpoint, she can be released and have a further workup as an outpatient if was not done recently. We will need a stress test to be sc heduled. The patient follows up with Dr. Henriquez already. 2.Hypertension. Blood pressure is controlled. She is bradycardic likely due to atenolol. We will recommend switching it to a different medication either Coreg or Toprol and she can get a close follo wup with us in the outpatient arena. Obtain echocardiogram and a stress test. Make sure the patient is taking baby aspirin and will follow up with us as outpatient. Thank you for the consult. GURPREET Voice ID: [id number] Report ID: [id number]
[2021-04-26] MEDS ORDERED: clonazePAM 1 MG TAB PO PRN (21:35)
[2021-04-26 23:24] VITALS: O2SAT 99
[2021-04-27 06:23] LABS: Absolute Lymphocytes (CBC) 1.7 K/uL (0.7-4.9); Basophils % 0.5 % (0-1.3); Hematocrit 34.9 % (36.0-45.0); Lymphocytes % 36.2 % (15.3-44.8); MPV 6.8 fL (7.6-11.3)
[2021-04-27] MEDS ORDERED: PANTOPRAZOLE 40MG TABLET PO SCH (06:30)
[2021-04-27 06:51] LABS: Albumin 3.5 g/dL (3.4-5.0); Bilirubin Total 0.5 mg/dL (0.2-1.0); Potassium 3.8 mmol/L (3.5-5.1); Protein, Total 7.2 g/dL (6.4-8.2); Thyroid Stimulating Hormone 1.02 uIU/mL (0.360-3.740)
[2021-04-27] MEDS ORDERED: ASPIRIN EC 81 MG TAB PO SCH (09:00)
--- NOTE | 2021-04-27 11:41 | P.DS ---
Admission Date: 04/26/21 Discharge Date: 04/27/21 Primary Care Provider: Destini Disposition: ROUTINE DISCHARGE Discharge Condition: GOOD Reason for Admission: chest pain - Problems (1) HTN (hypertension) Current Visit: Yes Status: Acute Qualifiers: Hypertension type: primary hypertension Qualified Code(s): I10 - Essential (primary) hypertension (2) Bradycardia Current Visit: Yes Status: Acute (3) Chest pain Current Visit: No Status: Acute Qualifiers: Chest pain type: unspecified Qualified Code(s): R07.9 - Chest pain, unspecified Brief History of Present Illness: Office patient of [facility] with HTN, on losartan, hydroxine. She had some left side chest pain yesterday. She had no radiation. The patient has recently been started atenolol 25mg and was increased to 50mg aprox a week or two. She had no improvement yesterday with NTG. She was found to be sinus bradycardia in the ER. She had a negative troponin. The patient is currently sitting in her ER bed comfortable. She was very anxious. But has recieved some ativan Hospital Course: Patient admitted for chest pain and bradycardia. She was seen by Dr. Flores and her atenolol held. She had negative troponins. The patient is doing better this morning. She wants to restart her home bp meds. Her blood pressure is generally good during the day. However at night she wakes up with palpations and high blood pressure. She states she does snore. Have suggested she needs a sleep study. Dr. Flores would like her to have an echo and a stress test. She can call the office tomorrow for an appointment. [phone]. thank you for allowing me to take part in her care. Vital Signs/Physical Exam: Temp Pulse Resp BP Pulse Ox 99.3 F 72 16 127/75 98 04/27/21 08:00 04/27/21 08:00 04/27/21 08:00 04/27/21 08:00 04/27/21 08:00 General: Alert, In no apparent distress HEENT: Atraumatic, PERRLA, EOMI Neck: Supple, JVD not distended Respiratory: Clear to auscultation bilaterally, Normal air movement Cardiovascular: Regular rate/rhythm, Normal S1 S2 Gastrointestinal: Normal bowel sounds, No tenderness Musculoskeletal: No tenderness Integumentary: No rashes Neurological: Normal speech, Normal tone, Normal affect Lymphatics: No axilla or inguinal lymphadenopathy Laboratory Data at Discharge: WBC 4.80 K/uL (4.3-10.9) 04/27/21 05:57 Hgb 11.8 g/dL (12.0-15.0) L 04/27/21 05:57 Hct 34.9 % (36.0-45.0) L 04/27/21 05:57 Plt Count 226 K/uL (152-406) 04/27/21 05:57 PT 11.6 SECONDS (9.5-12.5) 04/26/21 08:11 INR 1.01 04/26/21 08:11 Sodium 143 mmol/L (136-145) 04/27/21 05:57 Potassium 3.8 mmol/L (3.5-5.1) 04/27/21 05:57 BUN 13 mg/dL (7-18) 04/27/21 05:57 Creatinine 0.69 mg/dL (0.55-1.3) 04/27/21 05:57 Glucose 97 mg/dL (74-106) 04/27/21 05:57 Magnesium 2.7 mg/dL (1.8-2.4) H 04/26/21 08:11 Total Bilirubin 0.5 mg/dL (0.2-1.0) 04/27/21 05:57 AST 16 U/L (15-37) 04/27/21 05:57 ALT 18 U/L (12-78) 04/27/21 05:57 Alkaline Phosphatase 64 U/L (45-117) 04/27/21 05:57 Troponin I < 0.02 ng/mL (0.0-0.045) 04/26/21 10:42 Home Medications: Olmesartan Medoxomil [Benicar] 40 mg PO DAILY 04/26/21 carvediloL [Carvedilol] 3.125 mg PO BID 30 Days #60 tablet 04/27/21 New Medications: carvediloL [Carvedilol] 3.125 mg PO BID 30 Days #60 tablet Followup: Stevie Georges MD [Primary Care Provider] - 1 Week Carson Flores MD [ACTIVE - CAN ADMIT] - 1-2 Weeks
[2021-04-27 13:00] VITALS: BP 147/69; TEMP 97.8
--- NOTE | 2021-04-28 18:31 | EKG ---
Test Date: 2021-04-26 Test Time: 08:11:47 Associate Professor Of Psychology: MEASUREMENT RESULTS: Intervals: Rate: 48 HI: 200 QRSD: 90 QT: 470 QTc: 419 [place]: P: 72 HI: 200 QRS: 38 T: 43 INTERPRETIVE STATEMENTS: Sinus bradycardia Otherwise normal ECG Compared to ECG 05/24/2018 09:06:37 Sinus rhythm no longer present Electronically Signed On 04-28-21 18:24:15 MERCHANDISE MANAGER by Bret Henriquez
== END 2021-04-27 12:45 | disposition home or self-care (01) | DRG 313 ==
LOC: ER 07:36 → SUPCPDRO 07:36 → ERHOLD 10:40 → 2ND 11:29
PROVIDERS: ADMIT Internal Medicine; ATTEND Internal Medicine
DX: R07.89 Other chest pain (principal); F41.9 Anxiety disorder, unspecified; I10 Essential (primary) hypertension; R00.1 Bradycardia, unspecified; T44.7X5A Adverse effect of beta-adrenoreceptor antagonists, initial encounter; Z79.899 Other long term (current) drug therapy; Z90.49 Acquired absence of other specified parts of digestive tract; Z90.710 Acquired absence of both cervix and uterus; Z20.822 Contact with and (suspected) exposure to COVID-19
CPT/HCPCS: 36415; 71045; 80048; 80053; 80076; 83735; 83880; 84443; 84484; 85025; 85610; 93005; 96374; 99285; J0360; U0003

== ENCOUNTER 2021-04-28 21:31 | Emergency (ER) | payer OTHER ==
[2021-04-28 22:38] LABS: Absolute Lymphocytes (CBC) 1.9 K/uL (0.7-4.9); Basophils % 0.5 % (0-1.3); Hematocrit 33.3 % (36.0-45.0); Lymphocytes % 38.5 % (15.3-44.8); MPV 6.9 fL (7.6-11.3); Protime INR 1.06; RBC Red Blood Cell Count 3.46 M/uL (3.86-4.86)
[2021-04-28 22:52] LABS: ALT/SGPT 18 U/L (12-78); AST/SGOT 13 U/L (15-37); Albumin 3.7 g/dL (3.4-5.0); Alkaline Phosphatase 63 U/L (45-117); BUN Blood Urea Nitrogen 10 mg/dL (7-18); Bicarbonate 25 mmol/L (21-32); Bilirubin Direct 0.2 mg/dL (0-0.2); Bilirubin Total 0.6 mg/dL (0.2-1.0); Glucose Level 97 mg/dL (74-106); Magnesium 2.8 mg/dL (1.8-2.4); NT PRO-BNP 116 pg/mL (<125); Potassium 3.4 mmol/L (3.5-5.1); Protein, Total 7.2 g/dL (6.4-8.2); Sodium Level 141 mmol/L (136-145); Troponin (Emerg Dept Use Only) < 0.02 ng/mL (0.0-0.045)
--- NOTE | 2021-04-28 23:13 | ER ---
Nurse's Notes [facility] Name: Tess Deal Age: 65 yrs Sex: Female : 1955 Arrival Date: 04/28/2021 Time: 21:32 Bed 5 Private MD: Diagnosis: Chest pain, unspecified;Palpitations Presentation: 04/28 21:42 Chief complaint: Patient states: she is not feeling right states her BP at home was in bb the 170s systolic she was released from the hospital yesterday for the same symptoms also has chest pain 01/28 and she took some nitro at home which has not helped with the pain. Coronavirus screen: At this time, the client does not indicate any symptoms associated with coronavirus-19. Ebola Screen: No symptoms or risks identified at this time. Initial Sepsis Screen: Does the patient meet any 2 criteria? No. Patient's initial sepsis screen is negative. Does the patient have a suspected source of infection? No. Patient's initial sepsis screen is negative. Risk Assessment: Do you want to hurt yourself or someone else? Patient reports no desire to harm self or others. Onset of symptoms was April 28, 2021. 21:42 Method Of Arrival: Ambulatory bb 21:42 Acuity: PRADEEP 3 bb 22:23 Note Blood work redrawn and sent to lab. df1 Triage Assessment: 21:47 General: Appears uncomfortable, well developed, Behavior is calm, cooperative. Pain: mr2 Complains of pain in mid-sternal area Pain radiates to neck Pain currently is 8 out of 10 on a pain scale. Quality of pain is described as throbbing, Pain began 3 hours ago. Is continuous, Alleviated by nothing. Aggravated by Noted to be quiet/stoic. Cardiovascular: Heart tones S1 S2. Respiratory: Breath sounds are clear bilaterally. Historical: - Allergies: 21:58 No Known Allergies; df1 - Home Meds: 21:44 Nitroglycerin Oral [Active]; bb 21:58 olmesartan 40 mg oral tab 1 tab once daily [Active]; carvedilol 3.125 mg oral tab 1 tab df1 2 times per day [Active]; aspirin 81 mg Oral tab 81 mg daily [Active]; - PMHx: 21:44 Anxiety; Hypertensive disorder; bb - PSHx: 21:44 section; Cholecystectomy; bb - Immunization history:: Adult Immunizations up to date, Client reports having NOT received the Covid vaccine. - Social history:: Smoking status: Patient denies any tobacco usage or history of. Patient/guardian denies using alcohol, street drugs, tobacco products. Screenin:49 Abuse screen: Denies threats or abuse. Denies injuries from another. Nutritional mr2 screening: No deficits noted. Tuberculosis screening: No symptoms or risk factors identified. Fall Risk IV access (20 points). Assessment: 21:49 General: Appears uncomfortable, well developed, Behavior is calm, cooperative. Pain: mr2 Complains of pain in mid-sternal area Pain radiates to neck Pain currently is 8 out of 10 on a pain scale. Quality of pain is described as throbbing, Pain began 3 hours ago. Is continuous, Alleviated by nothing. Cardiovascular: Reports chest pain. Vital Signs: 21:42 BP 145 / 86; Pulse 74; Resp 16 S; Temp 98(O); Pulse Ox 98% on R/A; Weight 63.5 kg (R); bb Height 5 ft. 3 in. (160.02 cm) (R); Pain 8/10; 21:42 Body Mass Index 24.80 (63.50 kg, 160.02 cm) bb Vitals: 21:49 Cardiac Rhythm Assessment Regular Sinus rhythm. mr2 Emilee Coma Score: 21:49 Eye Response: spontaneous(4). Verbal Response: oriented(5). Motor Response: obeys mr2 commands(6). Total: 15. ED Course: 21:32 Patient arrived in ED. ag3 21:35 Wolfgang Jones PA is PHCP. jmm 21:35 Ronald Maloney MD is Attending Physician. jmm 21:37 Jo Devlin is Primary Nurse. df1 21:44 Triage completed. bb 21:45 Arm band placed on Patient placed in an exam room, on a stretcher, on monitoring coordinator, bb on pulse oximetry. EKG completed in triage. Results shown to MD. 21:46 Basic Metabolic Panel Sent. mr2 21:46 Basic Metabolic Panel Sent. mr2 21:46 Magnesium Sent. mr2 21:46 NT PRO-BNP Sent. mr2 21:46 PT-INR Sent. mr2 21:46 Troponin (emerg Dept Use Only) Sent. mr2 21:47 CBC with Diff Sent. mr2 21:47 LFT's Sent. mr2 21:49 No provider procedures requiring assistance completed. mr2 21:49 Patient has correct armband on for positive identification. Call light in reach. Side mr2 rails up X2. Adult w/ patient. 21:57 Inserted saline lock: 20 gauge in left antecubital area, using aseptic technique. df1 22:06 XRAY Chest (1 view) In Process Unspecified. EDMS 23:11 Stevie Georges MD is Referral Physician. jmm 23:18 IV discontinued. mr2 Administered Medications: No medications were administered Outcome: 23:12 Discharge ordered by . jmm 23:18 Discharged to home ambulatory. mr2 23:18 Condition: stable 23:18 Discharge instructions given to patient, Instructed on discharge instructions, follow up and referral plans. 23:20 Patient left the ED. mr2 Signatures: Dispatcher [employer] EDMS Wolfgang Jones PA PA jmm Ballard, Brenda RN RN Nellie Parker Ori Preciado RN RN mr2 Jo Devlin df1 Corrections: (The following items were deleted from the chart) 22:00 21:44 Allergies: No Known Allergies; bb df1 22:00 21:44 Home Meds: Atenolol Oral; bb df1 22:00 21:44 Home Meds: olmesartan Oral; bb df1 22:00 21:44 Home Meds: carvedilol oral; bb df1 22:00 21:58 Allergies: Aspirin; df1 df1
--- NOTE | 2021-04-28 23:13 | EDPHYS ---
Physician Documentation [facility] Name: Tess Deal Age: 65 yrs Sex: Female : 1955 Arrival Date: 04/28/2021 Time: 21:32 Bed 5 Private MD: ED Physician Ronald Maloney HPI: 04/28 21:46 This 65 yrs old Female presents to ER via Ambulatory with complaints of High m Blood Pressure. 21:46 Onset: just prior to arrival. The pain does not radiate. Associated signs and symptoms: jmm Pertinent negatives: shortness of breath, vomiting. The chest pain is described as aching, sharp. Duration: The patient or guardian reports a single episode, that is still ongoing. Modifying factors: The symptoms are alleviated by nothing. the symptoms are aggravated by nothing. The patient has experienced similar episodes in the past. Historical: - Allergies: 21:58 No Known Allergies; df1 - Home Meds: 21:44 Nitroglycerin Oral [Active]; bb 21:58 olmesartan 40 mg oral tab 1 tab once daily [Active]; carvedilol 3.125 mg oral tab 1 tab df1 2 times per day [Active]; aspirin 81 mg Oral tab 81 mg daily [Active]; - PMHx: 21:44 Anxiety; Hypertensive disorder; bb - PSHx: 21:44 section; Cholecystectomy; bb - Immunization history:: Adult Immunizations up to date, Client reports having NOT received the Covid vaccine. - Social history:: Smoking status: Patient denies any tobacco usage or history of. Patient/guardian denies using alcohol, street drugs, tobacco products. ROS: 21:46 Constitutional: Negative for fever, chills, and weight loss, Respiratory: Negative for jmm shortness of breath, cough, wheezing, and pleuritic chest pain. 21:46 Cardiovascular: Positive for chest pain. 21:46 All other systems are negative. Exam: 21:46 Constitutional: This is a well developed, well nourished patient who is awake, alert, jmm and in no acute distress. Head/Face: atraumatic. Eyes: EOMI, no conjunctival erythema appreciated ENT: Moist Mucus Membranes Neck: Trachea midline, Supple Chest/axilla: Normal chest wall appearance and motion. Cardiovascular: Regular rate and rhythm. No edema appreciated Respiratory: Normal respirations, no respiratory distress appreciated Abdomen/GI: Non distended, soft Back: Normal ROM Skin: General appearance color normal MS/ Extremity: Moves all extremities, no obvious deformities appreciated, no edema noted to the lower extremities Neuro: Awake and alert, normal gait Psych: Behavior is normal, Mood is normal, Patient is cooperative and pleasant 22:06 ECG was reviewed by the Attending Physician. rn Vital Signs: 21:42 BP 145 / 86; Pulse 74; Resp 16 S; Temp 98(O); Pulse Ox 98% on R/A; Weight 63.5 kg (R); bb Height 5 ft. 3 in. (160.02 cm) (R); Pain 8/10; 21:42 Body Mass Index 24.80 (63.50 kg, 160.02 cm) bb Emilee Coma Score: 21:49 Eye Response: spontaneous(4). Verbal Response: oriented(5). Motor Response: obeys mr2 commands(6). Total: 15. MDM: 21:42 Patient medically screened. [facility] 23:11 Data reviewed: vital signs, nurses notes. Counseling: I had a detailed discussion with corry the patient and/or guardian regarding: the historical points, exam findings, and any diagnostic results supporting the discharge/admit diagnosis, lab results, radiology results, the need for outpatient follow up, to return to the emergency department if symptoms worsen or persist or if there are any questions or concerns that arise at home. ED course: I discussed the patient with Dr. Georges, recommends discharge and will follow up tomorrow if trop and ekg normal. . 04/28 21:45 Order name: Basic Metabolic Panel [facility] 04/28 21:45 Order name: CBC with Diff; Complete Time: 22:56 [facility] 04/28 21:45 Order name: LFT's; Complete Time: 22:56 [facility] 04/28 21:45 Order name: Magnesium; Complete Time: 22:56 [facility] 04/28 21:45 Order name: NT PRO-BNP; Complete Time: 22:56 [facility] 04/28 21:45 Order name: PT-INR; Complete Time: 22:56 [facility] 04/28 21:45 Order name: Troponin (emerg Dept Use Only); Complete Time: 22:56 [facility] 04/28 21:45 Order name: XRAY Chest (1 view) [facility] 04/28 21:45 Order name: EKG; Complete Time: 21:46 [facility] 04/28 21:45 Order name: Cardiac monitoring; Complete Time: 21:46 [facility] 04/28 21:45 Order name: EKG - Nurse/Tech; Complete Time: 21:46 [facility] 04/28 21:45 Order name: IV Saline Lock; Complete Time: 21:46 [facility] 04/28 21:45 Order name: Labs collected and sent; Complete Time: 21:46 [facility] 04/28 21:45 Order name: Basic Metabolic Panel; Complete Time: 22:56 [facility] 04/28 21:45 Order name: O2 Per Protocol; Complete Time: 21:46 [facility] 04/28 21:45 Order name: O2 Sat Monitoring; Complete Time: 21:47 [facility] EC:06 Rate is 70 beats/min. Rhythm is regular. QRS Arvin is Normal. MI interval is normal. QRS rn interval is normal. QT interval is normal. No Q waves. T waves are Normal. No ST changes noted. Clinical impression: Normal ECG. Interpreted by me. Reviewed by me. Administered Medications: No medications were administered Disposition: 23:48 Co-signature as Attending Physician, Ronald Maloney MD I agree with the assessment and rn plan of care. Attestation: The patient's history, exam findings, diagnostics, and a summary of any interventions or procedures was reviewed in detail with Wolfgang FROST. Disposition Summary: 04/28/21 23:12 Discharge Ordered Location: Home [facility] Condition: Stable jm Diagnosis - Chest pain, unspecified jmm - Palpitations jm Followup: [facility] - With: Stevie Georges MD - When: Tomorrow - Reason: Recheck today's complaints, Continuance of care, Re-evaluation by your physician Discharge Instructions: - Discharge Summary Sheet jmm - Nonspecific Chest Pain, Adult jmm - Palpitations [facility] Forms: - Medication Reconciliation Form [facility] - Thank You Letter jmm - Antibiotic Education jmm - Prescription Opioid Use [facility] Signatures: Dispatcher [employer] EDVT Wolfgang Jones PA PA jmm Ballard, Brenda, RN RN bb Nieto, Roman, MD MD rn Reynard, Mike, RN RN 2 Jo Devlin df1 Corrections: (The following items were deleted from the chart) ::44 Allergies: No Known Allergies; bb df1 ::44 Home Meds: Atenolol Oral; bb df1 ::44 Home Meds: olmesartan Oral; df1 ::44 Home Meds: carvedilol oral; df1 : 21:58 Allergies: Aspirin; df1 df1
[2021-04-28 23:39] VITALS: BP 145/86; TEMP 98; O2SAT 98
--- NOTE | 2021-04-29 08:43 | RAD REPORT ---
EXAM DESCRIPTION: RAD - Chest Single View - 04/28/2021 10:07 pm CLINICAL HISTORY: CHEST PAIN Chest pain. COMPARISON: Chest Single View dated 04/26/2021; Chest Single View dated 05/24/2018; CHEST SINGLE VIEW dated 10/16/2010; CHEST PA AND LAT 2 VIEW dated 12/10/2009 FINDINGS: Portable technique limits examination quality. The lungs are grossly clear. The heart is normal in size. No displaced fractures. IMPRESSION: No acute intrathoracic process suspected.
--- NOTE | 2021-04-30 11:25 | EKG ---
Test Date: 2021-04-28 Test Time: 21:41:44 Cafe Helper: OLIVE MEASUREMENT RESULTS: Intervals: Rate: 70 NV: 182 QRSD: 82 QT: 424 QTc: 457 [place]: P: 68 NV: 182 QRS: 28 T: 49 INTERPRETIVE STATEMENTS: Normal sinus rhythm Normal ECG Compared to ECG 04/26/2021 08:11:47 Sinus bradycardia no longer present Electronically Signed On 04-30-21 11:20:45 SUPPLIER QUALITY by Bret Henriquez
--- OUTSIDE RECORDS SUMMARY | 2021-05-03 17:33 | XMS REPORT | Continuity of Care Document ---
:1955 Author Organization [facility] t Address [address] [place] [address] Care Team Providers Name Role Phone ROSIE, Tisha Primary Care Physician Unavailable NETO OGLESBY Attending Clinician Unavailable Neto Oglesby MD Attending Clinician Only, Test Attending Clinician Unavailable Doctor Unassigned, Name Attending Clinician Unavailable NETO OGLESBY Admitting Clinician Unavailable Neto Oglesby MD Admitting Clinician Payers Payer Name Policy Type Policy Number Effective Date Expiration Date [facility] [place] A \T\ [id number] 2020 B 00:00:00 [facility] [id number] 2021 00:00:00 Problems This patient has no known problems. Allergies, Adverse Reactions, Alerts Allergy Allergy Status Severity Reaction(s) Onset Inactive Treating Comm ents Source Name Type Date Date Clinician NO KNOWN Drug Active Univers ALLERGIE Class ity of S [facility] Social History Social Habit Start Date Stop Date Quantity Comments Source Exposure to Not sure [facility] SARS-CoV-2 (event) Medica l Branch Sex Assigned [birth year] [facility] 00:00:00 00:00:00 Medical Branch Smoking Status Start Date Stop Date Source Never smoker [facility] Medications Ordered Filled Start Stop Current Ordering Indication Dosage Frequency Signature Comments Components Source Medication Medication Date Date Medication? Clinician (SIG) Name Name NaCl 0.9% Yes PRN, Univers (NS) 03-13 Starting ity of injection 16:04: on [place]ne [place] 03/13/21 at [place] [id number], Branch Until Discontinu ed, Routine, Intra-op neomycin-po Yes PRN, Univer s lymyxin-dex 03-13 Starting ity of amethasone 16:04: on Yvonne [place] (MAXITROL) 00 03/13/21 at [facility] ical 3.5 1104, Branch mg/g-10,000 Until unit/g-0.1 Discontinu % ed, ophthalmic Routine, ointment Intra-op gentamicin Yes PRN, Univers injection 03-13 Starting ity of 16:04: on Yvonne [place] 00 03/13/21 at [facility] 1104, Branch Until Discontinu ed, GERSON, Intra-op EPINEPHrine Yes PRN, Univer s (PF) 03-13 Starting ity of 1:1,000 (1 16:04: on Y[place]ne [place] mg/mL) 00 03/13/21 at [facility] (ADRENALIN 1104, Branch (PF)) Until injection Discontinu ed, Routine, Intra-op DUOVISC Yes PRN, Univers (DUOVISC 03-13 Starting ity of VISCO 16:04: on [place]ne [place] ELASTIC) 3 00 03/13/21 at [facility] ica %-4 %(0.5 1104, Branch mL) 1 % Until (0.55 mL) Discontinu intraocular ed, injection Routine, Intra-op NaCl 0.9% 2020- No PRN, Univers (NS) 03-13 Starting ity of injection 16:04: 18:58 on Y[place]ne [place] 00 :36 03/13/21 at [facility] 1104, Branch Until Yvonne 03/13/21 at 1358, Routine, Intra-op neomycin-po 2020- No PRN, Unive rs lymyxin-dex 03-13 Starting ity of amethasone 16:04: 18:58 on [place] (MAXITROL) 00 :36 03/13/21 at [facility] ical 3.5 1104, Branch mg/g-10,000 Until Yvonne unit/g-0.1 03/13/21 at % 1358, ophthalmic Routine, ointment Intra-op gentamicin 2020- No PRN, Univer s injection 03-13 Starting ity o f 16:04: 18:58 on [place]ne [place] 00 :36 03/13/21 at Medical 1104, Branch Until Yvonne 03/13/21 at 1358, GERSON, Intra-op EPINEPHrine 2020- No PRN, Unive rs (PF) 03-13 Starting ity of 1:1,000 (1 16:04: 18:58 on [place] mg/mL) 00 :36 03/13/21 at Medical (ADRENALIN 1104, Branch (PF)) Until Yvonne injection 03/13/21 at 1358, Routine, Intra-op DUOVISC 2020- No PRN, Univers (DUOVISC 03-13 Starting ity of VISCO 16:04: 18:58 on [place]ov[place]ne [place] ELASTIC) 3 00 :36 03/13/21 at Med ical %-4 %(0.5 1104, Branch mL) 1 % Until Yvonne (0.55 mL) 03/13/21 at intraocular 1358, injection Routine, Intra-op dexamethaso Yes PRN, Univer s ne 03-13 Starting ity of (DECADRON 16:03: on [place]ne [place] PHOSPHATE) 00 03/13/21 at Med ical injection 1103, Branch Until Discontinu ed, Routine, Intra-op ceFAZolin Yes PRN, Univers (ANCEF) 03-13 Starting ity of injection 16:03: on [place] 00 03/13/21 at Medical 1103, Branch Until Discontinu ed, GERSON, Intra-op dexamethaso 2020- No PRN, Unive rs ne 03-13 Starting ity of (DECADRON 16:03: 18:58 on [place] PHOSPHATE) 00 :36 03/13/21 at Med ical injection 1103, Branch Until Yvonne 03/13/21 at 1358, Routine, Intra-op ceFAZolin 2020- No PRN, Univers (ANCEF) 03-13 Starting ity of injection 16:03: 18:58 on [place] 00 :36 03/13/21 at Medical 1103, Branch Until Yvonne 03/13/21 at 1358, GERSON, Intra-op balanced Yes PRN, Univers salt soln 03-13 Starting ity of no.2 irrig. 15:57: on [facility] (BSS) 00 03/13/21 at [place] [id number], Branch solution Until Discontinu ed, Routine, Intra-op balanced 2020- No PRN, Univers salt soln 03-13 Starting ity o f no.2 irrig. 15:57: 18:58 on [facility] [place] (BSS) 00 :36 03/13/21 at [place] [id number], Branch solution Until Yvonne 03/13/21 at 1358, Routine, Intra-op water for Yes PRN, Univers irrigation 03-13 Starting ity o f irrigation 15:51: on [facility] solution 00 03/13/21 at [place] [address], Branch Until Discontinu ed, Routine, Intra-op tetracaine Yes PRN, Univers (PONTOCAINE 03-13 Starting ity of ) 0.5 % 15:51: on [facility] ophthalmic 00 03/13/21 at [facility] ica drops [facility], Branch Until Discontinu ed, Routine, Intra-op water for 2020- No PRN, Univers irrigation 03-13 Starting ity of irrigation 15:51: 18:58 [facility] 03/13/21 at [place] [address], Branch Until Yvonne 03/13/21 at 1358, Routine, Intra-op tetracaine 2020- No PRN, Univer s (PONTOCAINE 03-13 Starting ity of ) 0.5 % 15:51: 18:58 on [facility] ophthalmic 00 :36 03/13/21 at [facility] ical drops [facility], Branch Until Yvonne 03/13/21 at 1358, Routine, Intra-op eye block Yes PRN, Univers syringe 03-13 Starting ity o f mL 15:50: on [facility] 03/13/21 at [place] [id number], Branch Until Discontinu ed, Intra-op eye block 2020- No PRN, Univers syringe 11 03-13 Starting ity of mL 15:50: 18:58 on [facility] [place] 00 :36 03/13/21 at Medical 1050, Branch Until Yvonne 03/13/21 at 1358, Intra-op lactated 2020- No IV Univers ringers IV 03-13 Infusion, ity of infusion 14:02: 16:20 [place]UOUS [place] 00 :52 PRN, Medical Starting Branch on Yvonne 03/13/21 at 0902, Until Yvonne 03/13/21 at 1120, Routine, Intra-op lactated 2020- No IV Univers ringers IV 03-13 Infusion, ity of infusion 14:02: 16:20 [place]UOUS [place] 00 :52 PRN, Medical Starting Branch on Yvonne 03/13/21 at 0902, Until Yvonne 03/13/21 at 1120, Routine, Intra-op mydriatic 2020- No .5mL 0.5 mL, Univ ers #5 03-13 Left Eye, ity of ophthalmic 14:00: 14:07 ONCE, 1 [place] solution 00 :00 dose, On Medical 0.5 mL Yvonne Branch syringe 03/13/21 at 0900, Routine, DSU Pre-op mydriatic 2020- No .5mL 0.5 mL, Univ ers #5 03-13 Left Eye, ity of ophthalmic 14:00: 14:07 ONCE, 1 [place] solution 00 :00 dose, On Medical 0.5 mL Yvonne Branch syringe 03/13/21 at 0900, Routine, DSU Pre-op lisinopriL 2020-0 Yes 5mg Take 5 mg Un nura 5 mg tablet 03-13 by mouth ity of 11:58: daily. [address] lisinopriL 2020-0 Yes 5mg Take 5 mg Un nura 5 mg tablet 03-13 by mouth ity of 11:58: daily. [address] Vital Signs Vital Name Observation Time Observation Value Comments Source Systolic blood 2021-03-13 16:31:00 149 mm[Hg] Univer sity of pressure [facility] Diastolic blood 2021-03-13 16:31:00 71 mm[Hg] Unive rsity of pressure [facility] Heart rate 2021-03-13 16:31:00 53 /min [facility] Oxygen saturation in 2021-03-13 16:31:00 100 /min University of Arterial blood by [facility] Pulse oximetry Branch Body temperature 2021-03-13 14:03:00 36.33 Nel [facility] ersity of [facility] Respiratory rate 2021-03-13 14:03:00 18 /min Univ ersity of [facility] Body height 2021-03-11 18:15:00 160 cm [facility]i [facility] Body weight 2021-03-11 18:15:00 65.318 kg [facility] [place] [facility] BMI 2021-03-11 18:15:00 25.51 kg/m2 Universi ty of [facility] Branch Systolic blood 2021-03-13 16:31:00 149 mm[Hg] Univer sity of pressure [facility] Diastolic blood 2021-03-13 16:31:00 71 mm[Hg] [facility] Heart rate 2021-03-13 16:31:00 53 /min Universi ty of [facility] Oxygen saturation in 2021-03-13 16:31:00 100 /min University of Arterial blood by [facility] Pulse oximetry Branch Body temperature 2021-03-13 14:03:00 36.33 Nel [facility] ersity [facility] Respiratory rate 2021-03-13 14:03:00 18 /min [facility] ersity [facility] Body height 2021-03-11 18:15:00 160 cm [facility]i [facility] [place] [facility] [place] Body weight 2021-03-11 18:15:00 65.318 kg Universi ty of [facility] BMI 2021-03-11 18:15:00 25.51 kg/m2 Universi ty of [facility] Procedures Procedure Date / Time Performing Source Performed Clinician PHACOEMULSIFICATION OF 2021-03-13 Dwayne [facility] CATARACT WITH INTRAOCULAR 15:40:00 Neto Pritchett LENS IMPLANT COVID-19 (ID NOW RAPID 2021-03-11 Dwayne [facility] TESTING) 17:54:00 Neto [facility] Shreyas ASSIGNMENT OF BENEFITS 2021-03-11 Doctor Unassigned, [facility] 17:46:35 [place] [facility] Encounters Start End Encounter Admission Attending Care Care Encounter Source Date/Time Date/Time Type Type Clinicians Facility Department ID 2021-04-30 Outpatient R DWAYNE [facility] OPH [id number] Univers 16:04:15 BRENDA kaleigh [facility] 2021-04-22 Outpatient R DWAYNE [facility] OPH [id number] Univers 00:16:07 BRENDA everett [facility] 2021-05-06 2021-05-06 Outpatient R [facility] [id number] Univers 15:00:00 15:00:00 [id number] ity [facility] 2021-05-06 2021-05-06 Outpatient R DWAYNE [facility] [id number] Univers 15:00:00 15:00:00 BRENDA kaleigh [facility] 2021-04-29 2021-04-29 Outpatient R [facility] [id number] Univers 09:15:00 09:15:00 [id number] [facility]-03-13 2021-03-13 [facility] [id number] Univers 08:54:00 11:58:00 Encounter Brenda Draper [id number] ity [id number] [id number] [facility] 071 Branch 2021-03-13 2021-03-13 [facility] [id number] Univers 11:05:00 11:42:00 Brenda Draper [id number] i [id number] [id number] [facility] 020 Branch 2021-03-12 2021-03-12 Outpatient R DWAYNE [facility] [id number] Univers 10:15:00 10:15:[id number] [facility] 2021-03-11 2021-03-11 Laboratory Only, Adc Test [facility] [id number]. [id number] Univers 12:45:47 13:00:47 Only Brenda Oglesby 350.1.1 3.10 ity [id number] [id number] [place] [address] Branch 2021-03-11 2021-03-11 Outpatient R DWAYNE [facility] [id number] Univers 13:00:00 13:00:00 BRENDA everett of [facility] 2021-03-11 2021-03-11 Orders Doctor FILIPPO [id number] Univers 00:00:00 00:00:00 Only Unassigned, IFRAH [id number] ity of [place] [facility] [id number] [place] [id number] [place] [address] Branch Results This patient has no known results.
== END 2021-04-28 23:20 | disposition home or self-care (01) ==
LOC: ER 21:31
DX: R00.2 Palpitations (principal); I10 Essential (primary) hypertension; F41.9 Anxiety disorder, unspecified; Z79.82 Long term (current) use of aspirin
CPT/HCPCS: 36415; 71045; 80048; 80076; 83735; 83880; 84484; 85025; 85610; 93005; 99284

== ENCOUNTER 2021-05-03 10:41 | Emergency (ER) | payer OTHER ==
[2021-05-03 12:34] LABS: Absolute Lymphocytes (CBC) 1.5 K/uL (0.7-4.9); Basophils % 1.1 % (0-1.3); Hematocrit 34.3 % (36.0-45.0); Lymphocytes % 33.8 % (15.3-44.8); MPV 7.1 fL (7.6-11.3); RBC Red Blood Cell Count 3.54 M/uL (3.86-4.86)
[2021-05-03 12:37] LABS: Protime INR 1.03
[2021-05-03 12:54] LABS: ALT/SGPT 19 U/L (12-78); AST/SGOT 16 U/L (15-37); Albumin 3.8 g/dL (3.4-5.0); Alkaline Phosphatase 65 U/L (45-117); BUN Blood Urea Nitrogen 8 mg/dL (7-18); Bicarbonate 27 mmol/L (21-32); Bilirubin Direct 0.2 mg/dL (0-0.2); Bilirubin Total 0.5 mg/dL (0.2-1.0); Glucose Level 91 mg/dL (74-106); Magnesium 2.7 mg/dL (1.8-2.4); NT PRO-BNP 112 pg/mL (<125); Potassium 3.9 mmol/L (3.5-5.1); Protein, Total 7.5 g/dL (6.4-8.2); Sodium Level 144 mmol/L (136-145); Troponin (Emerg Dept Use Only) < 0.02 ng/mL (0.0-0.045)
--- NOTE | 2021-05-03 13:13 | ER ---
Nurse's Notes [facility] Name: Tess Deal Age: 65 yrs Sex: Female : 1955 Arrival Date: 05/03/2021 Time: 10:42 Bed 6 Private MD: Greg Cohen C Diagnosis: Essential (primary) hypertension;Chest pain, unspecified;Anxiety disorder, unspecified Presentation: 05/03 10:56 Chief complaint: Patient states: has been here 2 previous times for same issue, her BP iw was high last night, she took 3 nitro, BP came down but she still doesn't feel right, is having neck pain and she was having some chest pains too , sees DR. Henriquez. Coronavirus screen: At this time, the client does not indicate any symptoms associated with coronavirus-19. Ebola Screen: Patient negative for fever greater than or equal to 101.5 degrees Fahrenheit, and additional compatible Ebola Virus Disease symptoms Patient denies exposure to infectious person. Patient denies travel to an Ebola-affected area in the 21 days before illness onset. No symptoms or risks identified at this time. Initial Sepsis Screen: Does the patient meet any 2 criteria? No. Patient's initial sepsis screen is negative. Does the patient have a suspected source of infection? No. Patient's initial sepsis screen is negative. Risk Assessment: Do you want to hurt yourself or someone else? Patient reports no desire to harm self or others. Onset of symptoms was May 02, 2021. 10:56 Method Of Arrival: Ambulatory iw 10:56 Acuity: PRADEEP 3 iw Triage Assessment: 11:00 General: Appears in no apparent distress. uncomfortable, Behavior is cooperative, bp appropriate for age, anxious. Pain: Complains of pain in chest. EENT: No deficits noted. Neuro: Reports headache. Cardiovascular: No deficits noted. Respiratory: No deficits noted. GI: No signs and/or symptoms were reported involving the gastrointestinal system. : No signs and/or symptoms were reported regarding the genitourinary system. Derm: No deficits noted. Historical: - Allergies: 11:00 No Known Allergies; iw - Home Meds: 10:59 aspirin 81 mg Oral tab 81 mg daily [Active]; carvedilol 3.125 mg Oral tab 1 tab 2 times iw per day [Active]; nitroglycerin 0.4 mg SL subl 1 tab every 5 minutes [Active]; olmesartan 40 mg Oral tab 1 tab once daily [Active]; zolpidem 10 mg Oral tab 1 tab once daily [Active]; - PMHx: 10:59 Anxiety; Hypertensive disorder; iw - PSHx: 10:59 section; Cholecystectomy; iw - Immunization history:: Client reports having NOT received the Covid vaccine. - Social history:: Smoking status: Patient denies any tobacco usage or history of. - Family history:: not pertinent. Screenin:00 Abuse screen: Denies threats or abuse. Denies injuries from another. Nutritional bp screening: No deficits noted. Tuberculosis screening: No symptoms or risk factors identified. Fall Risk None identified. Assessment: 10:50 General: SEE TRIAGE NOTE. bp 11:10 Reassessment: No changes from previously documented assessment. PT REFUSING CXR, EKG bp AND FURTHER MEDICAL INTERVENTIONS. 12:00 Reassessment: AFTER CLINICAL NURSING PROFESSOR BY MD, PT NOW AGREEABLE TO FURTHER DIAGNOSTICS Patient bp denies pain at this time. 13:38 Reassessment: PT D/C HOME AMBULATORY WITH FAMILY, DX WITH HTN AND ANXIETY. bp Vital Signs: 10:56 BP 152 / 80; Pulse 55; Resp 16; Temp 98.0; Pulse Ox 97% on R/A; Weight 64.86 kg; Height iw 5 ft. 3 in. (160.02 cm); 11:00 BP 141 / 62; Pulse 57; Resp 16; Pulse Ox 96% ; bp 12:00 BP 142 / 74; Pulse 55; Resp 16; Pulse Ox 100% ; bp 13:38 BP 150 / 75; Pulse 55; Resp 17; Temp 98; Pulse Ox 99% ; bp 10:56 Body Mass Index 25.33 (64.86 kg, 160.02 cm) iw ED Course: 10:42 Patient arrived in ED. am2 10:42 Greg Cohen MD is Private Physician. am2 10:46 Marco Noland MD is Attending Physician. ayah 10:47 Gael Saha, NEIVN is Primary Nurse. bp 10:59 Triage completed. iw 11:00 Arm band placed on. iw 11:00 Patient has correct armband on for positive identification. Bed in low position. Call bp light in reach. Side rails up X2. 12:18 EKG done, by ED staff, reviewed by Marco Noland MD. em1 13:12 Greg Cohen MD is Referral Physician. ayah 13:12 Bret Henriquez MD is Referral Physician. ayah 13:12 Stevie Georges MD is Referral Physician. ayah 13:38 No provider procedures requiring assistance completed. IV discontinued, intact, bp bleeding controlled, No redness/swelling at site. Pressure dressing applied. Administered Medications: No medications were administered Outcome: 13:12 Discharge ordered by . ayah 13:38 Discharged to home ambulatory. bp 13:38 Condition: stable 13:38 Discharge instructions given to patient, Instructed on discharge instructions, follow up and referral plans. medication usage, Demonstrated understanding of instructions, follow-up care, medications. 13:47 Patient left the ED. bp Signatures: Marco Noland MD MD cha Williams, Irene, RN RN Philipp Garcia em1 Negar Morales am2 Gael Saha, RN RN bp
--- NOTE | 2021-05-03 13:13 | EDPHYS ---
Physician Documentation [facility] Name: Tess Deal Age: 65 yrs Sex: Female : 1955 Arrival Date: 05/03/2021 Time: 10:42 Bed 6 Private MD: Greg Cohen C ED Physician Marco Noland HPI: 05/03 11:39 This 65 yrs old Female presents to ER via Ambulatory with complaints of High ayah Blood Pressure. 11:39 The patient has elevated blood pressure and discovered this at home, with a home ayah device. Onset: The symptoms/episode began/occurred 1 day(s) ago. Modifying factors: The symptoms are aggravated by activity, The symptoms are alleviated by remaining still. Associated signs and symptoms: The patient has no apparent associated signs or symptoms. Severity of symptoms: At its worst the blood pressure was moderate, in the emergency department the blood pressure is improved, markedly. The patient has not experienced similar symptoms in the past. Historical: - Allergies: 11:00 No Known Allergies; iw - Home Meds: 10:59 aspirin 81 mg Oral tab 81 mg daily [Active]; carvedilol 3.125 mg Oral tab 1 tab 2 times iw per day [Active]; nitroglycerin 0.4 mg SL subl 1 tab every 5 minutes [Active]; olmesartan 40 mg Oral tab 1 tab once daily [Active]; zolpidem 10 mg Oral tab 1 tab once daily [Active]; - PMHx: 10:59 Anxiety; Hypertensive disorder; iw - PSHx: 10:59 section; Cholecystectomy; iw - Immunization history:: Client reports having NOT received the Covid vaccine. - Social history:: Smoking status: Patient denies any tobacco usage or history of. - Family history:: not pertinent. ROS: 11:39 Constitutional: Negative for fever, chills, and weight loss, Eyes: Negative for injury, ayah pain, redness, and discharge, ENT: Negative for injury, pain, and discharge, Neck: Negative for injury, pain, and swelling, Respiratory: Negative for shortness of breath, cough, wheezing, and pleuritic chest pain, Abdomen/GI: Negative for abdominal pain, nausea, vomiting, diarrhea, and constipation, Back: Negative for injury and pain, : Negative for injury, bleeding, discharge, and swelling, MS/Extremity: Negative for injury and deformity, Skin: Negative for injury, rash, and discoloration, Neuro: Negative for headache, weakness, numbness, tingling, and seizure, Psych: Negative for depression, anxiety, suicide ideation, homicidal ideation, and hallucinations, Allergy/Immunology: Negative for hives, rash, and allergies, Endocrine: Negative for neck swelling, polydipsia, polyuria, polyphagia, and marked weight changes, Hematologic/Lymphatic: Negative for swollen nodes, abnormal bleeding, and unusual bruising. 11:39 Cardiovascular: Positive for chest pain, of the chest. Exam: 11:39 Constitutional: This is a well developed, well nourished patient who is awake, alert, ayah and in no acute distress. Head/Face: Normocephalic, atraumatic. Eyes: Pupils equal round and reactive to light, extra-ocular motions intact. Lids and lashes normal. Conjunctiva and sclera are non-icteric and not injected. Cornea within normal limits. Periorbital areas with no swelling, redness, or edema. ENT: Nares patent. No nasal discharge, no septal abnormalities noted. Tympanic membranes are normal and external auditory canals are clear. Oropharynx with no redness, swelling, or masses, exudates, or evidence of obstruction, uvula midline. Mucous membranes moist. Neck: Trachea midline, no thyromegaly or masses palpated, and no cervical lymphadenopathy. Supple, full range of motion without nuchal rigidity, or vertebral point tenderness. No Meningismus. Chest/axilla: Normal chest wall appearance and motion. Nontender with no deformity. No lesions are appreciated. Cardiovascular: Regular rate and rhythm with a normal S1 and S2. No gallops, murmurs, or rubs. Normal PMI, no JVD. No pulse deficits. Respiratory: Lungs have equal breath sounds bilaterally, clear to auscultation and percussion. No rales, rhonchi or wheezes noted. No increased work of breathing, no retractions or nasal flaring. Abdomen/GI: Soft, non-tender, with normal bowel sounds. No distension or tympany. No guarding or rebound. No evidence of tenderness throughout. Back: No spinal tenderness. No costovertebral tenderness. Full range of motion. Female : Normal external genitalia. Skin: Warm, dry with normal turgor. Normal color with no rashes, no lesions, and no evidence of cellulitis. MS/ Extremity: Pulses equal, no cyanosis. Neurovascular intact. Full, normal range of motion. Neuro: Awake and alert, GCS 15, oriented to person, place, time, and situation. Cranial nerves II-XII grossly intact. Motor strength 5/5 in all extremities. Sensory grossly intact. Cerebellar exam normal. Normal gait. Psych: Awake, alert, with orientation to person, place and time. Behavior, mood, and affect are within normal limits. 13:13 ECG was reviewed by the Attending Physician. [facility] Vital Signs: 10:56 BP 152 / 80; Pulse 55; Resp 16; Temp 98.0; Pulse Ox 97% on R/A; Weight 64.86 kg; Height iw 5 ft. 3 in. (160.02 cm); 11:00 BP 141 / 62; Pulse 57; Resp 16; Pulse Ox 96% ; bp 12:00 BP 142 / 74; Pulse 55; Resp 16; Pulse Ox 100% ; bp 13:38 BP 150 / 75; Pulse 55; Resp 17; Temp 98; Pulse Ox 99% ; bp 10:56 Body Mass Index 25.33 (64.86 kg, 160.02 cm) iw MDM: 10:46 Patient medically screened. ayah 11:42 Differential diagnosis: hypertensive crisis, Malignant HTN. Data reviewed: vital signs, [facility] nurses notes, lab test result(s), EKG, radiologic studies. Data interpreted: alarm security or surveillance monitor: rate is 57 beats/min, rhythm is regular, Pulse oximetry: is not applicable for this patient encounter. Test interpretation: by ED physician or midlevel provider: ECG, plain radiologic studies. 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 05/03 10:48 Order name: Basic Metabolic Panel; Complete Time: 13:12 [facility] 05/03 10:48 Order name: CBC with Diff; Complete Time: 13:12 [facility] 05/03 10:48 Order name: LFT's; Complete Time: 13:12 [facility] 05/03 10:48 Order name: Magnesium; Complete Time: 13: [facility] 05/03 10:48 Order name: NT PRO-BNP; Complete Time: 13:12 [facility] 05/03 10:48 Order name: PT-INR; Complete Time: 13:12 [facility] 05/03 10:48 Order name: Troponin (emerg Dept Use Only); Complete Time: 13:12 [facility] 05/03 10:48 Order name: EKG; Complete Time: 10:48 05/03 10:48 Order name: Cardiac monitoring; Complete Time: 11:03 05/03 10:48 Order name: EKG - Nurse/Tech; Complete Time: 12:14 [facility] 05/03 10:48 Order name: IV Saline Lock; Complete Time: 12:58 [facility] 05/03 10:48 Order name: Labs collected and sent; Complete Time: 12:58 [facility] 05/03 10:48 Order name: O2 Per Protocol; Complete Time: 11:02 [facility] 05/03 10:48 Order name: O2 Sat Monitoring; Complete Time: 11:02 [facility] EC:13 Rate is 50 beats/min. Rhythm is regular. QRS [place] is Normal. OR interval is normal. QRS ayah interval is normal. QT interval is normal. No Q waves. T waves are Normal. No ST changes noted. Clinical impression: Sinus bradycardia and No evidence of ischemia. Interpreted by me. Reviewed by me. Administered Medications: No medications were administered Disposition Summary: 05/03/21 13:12 Discharge Ordered Location: Home ayah Problem: new ayah Symptoms: have improved ayah Condition: Stable ayah Diagnosis - Essential (primary) hypertension ayah - Chest pain, unspecified ayah - Anxiety disorder, unspecified ayah Followup: ayah - With: - When: 2 - 3 days - Reason: Recheck today's complaints, Continuance of care, Re-evaluation by your physician Followup: ayah - With: - When: As needed - Reason: Recheck today's complaints, Continuance of care, Re-evaluation by your physician Followup: ayah - With: Stevie Georges MD - When: 2 - 3 days - Reason: Recheck today's complaints, Re-evaluation by your physician Discharge Instructions: - Discharge Summary Sheet ayah - Nonspecific Chest Pain, Adult ayah - Hypertension, Adult ayah - Nonspecific Chest Pain, Adult, [id number] ayah - Hypertension, Adult, [id number] ayah - How to Take Your Blood Pressure, [id number] ayah - Aspirin and Your Heart ayah - Generalized Anxiety Disorder, Adult ayah - Managing Your Hypertension ayah Forms: - Medication Reconciliation Form ayah - Thank You Letter ayah - Antibiotic Education ayah - Prescription Opioid Use ayah Prescriptions: - Xanax 0.5 mg Oral Tablet - take 1 tablet by ORAL route every 8 hours As needed; 15 tablet; Refills: 0, ayah Product Selection Permitted Signatures: Dispatcher [employer] Marco Barker MD MD cha Williams, Irene, RN RN iw Corrections: (The following items were deleted from the chart) 11:10 10:48 Chest Single View+RAD.RAD.BRZ ordered. EDNV EDMS
[2021-05-03 14:01] VITALS: BP 150/75; TEMP 98; O2SAT 99
--- OUTSIDE RECORDS SUMMARY | 2021-05-03 23:33 | XMS REPORT | Continuity of Care Document ---
:1955 Author Organization [facility] t Address [address] [place] [address] Care Team Providers Name Role Phone ROSIE, Tisha Primary Care Physician Unavailable NETO OGLESBY Attending Clinician Unavailable Neto Oglesby MD Attending Clinician Only, Test Attending Clinician Unavailable Doctor Unassigned, Name Attending Clinician Unavailable NETO OGLESBY Admitting Clinician Unavailable Neto Oglesby MD Admitting Clinician Payers Payer Name Policy Type Policy Number Effective Date Expiration Date S [facility]IC[facility] PART A \T\ [id number] 2020 B 00:00:[address] [facility] [id number] 2021 00:00:00 Problems This patient has no known problems. Allergies, Adverse Reactions, Alerts Allergy Allergy Status Severity Reaction(s) Onset Inactive Treating Comm ents Source Name Type Date Date Clinician NO KNOWN Drug Active Univers ALLERGIE Class ity of S [facility] Social History Social Habit Start Date Stop Date Quantity Comments Source Exposure to Not sure [facility] SARS-CoV-2 (event) Medica l Branch Sex Assigned [birth year] [facility] 00:00:00 00:00:00 Medical Branch Smoking Status Start Date Stop Date Source Never smoker [facility] Medications Ordered Filled Start Stop Current Ordering Indication Dosage Frequency Signature Comments Components Source Medication Medication Date Date Medication? Clinician (SIG) Name Name NaCl 0.9% Yes PRN, Univers (NS) 03-13 Starting ity of injection 16:04: on Yvonne [place] 03/13/21 at [place] [id number], Branch Until Discontinu ed, Routine, Intra-op neomycin-po Yes PRN, Univer s lymyxin-dex 03-13 Starting ity of amethasone 16:04: on Yvonne [place] (MAXITROL) 00 03/13/21 at [facility] ical 3.5 1104, Branch mg/g-10,000 Until unit/g-0.1 Discontinu % ed, ophthalmic Routine, ointment Intra-op gentamicin Yes PRN, Univers injection 03-13 Starting ity of 16:04: on Yvonne [place] 00 03/13/21 at [facility] 1104, Branch Until Discontinu ed, GERSON, Intra-op EPINEPHrine Yes PRN, Univer s (PF) 03-13 Starting ity of 1:1,000 (1 16:04: on Yvonne [place] mg/mL) 00 03/13/21 at [facility] (ADRENALIN 1104, Branch (PF)) Until injection Discontinu ed, Routine, Intra-op DUOVISC Yes PRN, Univers (DUOVISC 03-13 Starting ity of VISCO 16:04: on Yvonne [place] ELASTIC) 3 00 03/13/21 at [facility] ica %-4 %(0.5 1104, Branch mL) 1 % Until (0.55 mL) Discontinu intraocular ed, injection Routine, Intra-op NaCl 0.9% 2020- No PRN, Univers (NS) 03-13 Starting ity of injection 16:04: 18:58 on Yvonne [place] 00 :36 03/13/21 at [facility] 1104, Branch Until Yvonne 03/13/21 at 1358, Routine, Intra-op neomycin-po 2020- No PRN, Unive rs lymyxin-dex 03-13 Starting ity of amethasone 16:04: 18:58 [place] (MAXITROL[place] 00 :36 03/13/21 at [facility] ical 3.5 1104, Branch mg/g-10,000 Until Yvonne [...] Starting ity of VISCO 16:04: 18:58 on Yvonne [place] ELASTIC) 3 00 :36 03/13/21 at [...] Starting ity of no.2 irrig. 15:57: on [facility] [place] (BSS[place] 00 03/13/21 at [place] [address], Branch solution Until Discontinu ed, Routine, Intra-op balanced 2020- No PRN, Univers salt soln 03-13 Starting ity o f no.2 irrig. 15:57: 18:58 on [facility] Jos[place] as (BSS) 00 :36 03/13/21 at [place] [address], Branch solution Until Yvonne 03/13/21 at 1358, Routine, Intra-op water for Yes PRN, Univers irrigation 03-13 Starting ity o f irrigation 15:51: on [facility] solution 00 03/13/21 at [place] [address], Branch Until Discontinu ed, Routine, Intra-op tetracaine Yes PRN, Univers (PONTOCAINE 03-13 Starting ity of ) 0.5 % 15:51: on [facility] ophthalmic 00 03/13/21 at [facility] ica drops [facility], Branch Until Discontinu ed, Routine, Intra-op water for 2020- No PRN, Univers irrigation 03-13 Starting ity of irrigation 15:51: 18:58 [facility] 03/13[facility]21 at [place] [address], Branch Until Yvonne 03/13/21 at 1358, Routine, Intra-op tetracaine 2020- No PRN, Univer s (PONTOCAINE 03-13 Starting ity of ) 0.5 % 15:51: 18:58 on [facility] ophthalmic 00 :36 03/13/21 at [facility] ical drops [facility], Branch Until Yvonne 03/13/21 at 1358, Routine, Intra-op eye block Yes PRN, Univers syringe 03-13 Starting ity o f mL 15:50: on [facility] 03/13/21 at [place] [id number], Branch Until Discontinu ed, Intra-op eye block 2020- No PRN, Univers syringe 11 03-13 Starting ity of mL 15:50: 18:58 on [facility] [place] 00 :36 03/13/21 at Medical 1050, [...] 03-13 by mouth ity of 11:58: daily. [address] lisinopriL 2020-0 Yes 5mg Take 5 mg Un nura 5 mg tablet 03-13 by mouth ity of 11:58: daily. [address] Vital Signs Vital Name Observation Time Observation Value Comments Source Systolic blood 2021-03-13 16:31:00 149 mm[Hg] Univer sity of pressure [facility] Diastolic blood 2021-03-13 16:31:00 71 mm[Hg] Unive rsity of pressure [facility] Heart rate 2021-03-13 16:31:00 53 /min [facility] Oxygen saturation in 2021-03-13 16:31:00 100 /min University of Arterial blood by [facility] Pulse oximetry Branch Body temperature 2021-03-13 14:03:00 36.33 Nel [facility] ersity of [facility] Respiratory rate 2021-03-13 14:03:00 18 /min Univ ersity of [facility] Body height 2021-03-11 18:15:00 160 cm Universi ty of [place] [facility] [place] Body weight 2021-03-11 18:15:00 65.318 kg Universi ty [facility] [place] [facility] BMI 2021-03-11 18:15:00 25.51 kg/m2 Universi ty of [facility] Branch Systolic blood 2021-03-13 16:31:00 149 mm[Hg] Univer sity of pressure [facility] Diastolic blood 2021-03-13 16:31:00 71 mm[facility]Hg[facility] Heart rate 2021-03-13 16:31:00 53 /min Universi ty of [facility] Oxygen saturation in 2021-03-13 16:31:00 100 /min University of Arterial blood by [facility] Pulse oximetry Branch Body temperature 2021-03-13 14:03:00 36.33 Nel [facility] ersity [facility] Respiratory rate 2021-03-13 14:03:00 18 /min [facility] ersity [facility] Body height 2021-03-11 18:15:00 160 cm [facility] [place] [facility] [place] Body weight 2021-03-11 18:15:00 65.318 kg Universi ty of [facility] BMI 2021-03-11 18:15:00 25.51 kg/m2 Universi ty of [facility] Procedures Procedure Date / Time Performing Source Performed Clinician PHACOEMULSIFICATION OF 2021-03-13 Dwayne [facility] CATARACT WITH INTRAOCULAR 15:40:00 Neto Pritchett LENS IMPLANT COVID-19 (ID NOW RAPID 2021-03-11 Dwayne [facility] TESTING) 17:54:00 Neto [facility] Shreyas ASSIGNMENT OF BENEFITS 2021-03-11 Doctor Unassigned, [facility] 17:46:35 [place] [facility] Encounters Start End Encounter Admission Attending Care Care Encounter Source Date/Time Date/Time Type Type Clinicians Facility Department ID 2021-04-30 Outpatient R DWAYNE [facility] OPH [id number] Univers 16:04:15 BRENDA kaleigh [facility] 2021-04-22 Outpatient R DWAYNE [facility] OPH [id number] Univers 00:16:07 BRENDA everett [facility] 2021-05-06 2021-05-06 Outpatient R [facility] [id number] Univers 15:00:00 15:00:00 [id number] ity [facility] 2021-05-06 2021-05-06 Outpatient R DWAYNE [facility] [id number] Univers 15:00:00 15:00:00 BRENDA kaleigh [facility] 2021-04-29 2021-04-29 Outpatient R [facility] [id number] Univers 09:15:00 09:15:00 [id number] [facility] 2021-03-13 2021-03-13 [facility] [id number] Univers 08:54:00 11:58:00 Encounter Brenda Draper [id number] ity [id number] [id number] [facility] 071 Branch 2021-03-13 2021-03-13 [facility] [id number] Univers 11:05:00 11:42:00 Brenda Draper [id number] i [id number] [id number] [facility] 020 Branch 2021-03-12 2021-03-12 Outpatient R DWAYNE [facility] [id number] Univers 10:15:00 10:15:00 BRENDA [id number] [facility] [place] 2021-03-11 2021-03-11 Laboratory Only, Adc Test [facility] [id number]. [id number] Univers 12:45:47 13:00:47 Only Brenda Oglesby 350.1.1 3.10 ity [id number] [id number] [place] [address] Branch 2021-03-11 2021-03-11 Outpatient R DWAYNE [facility] [id number] Univers 13:00:00 13:00:00 BRENDA everett of [facility] 2021-03-11 2021-03-11 Orders Doctor FILIPPO [id number] Univers 00:00:00 00:00:00 Only Unassigned, IFRAH [id number] ity of [place] [facility] [id number] [place] [id number] [place] [address] Branch Results This patient has no known results.
== END 2021-05-03 13:47 | disposition home or self-care (01) ==
LOC: ER 10:41
DX: R07.9 Chest pain, unspecified (principal); F41.9 Anxiety disorder, unspecified; I10 Essential (primary) hypertension
CPT/HCPCS: 36415; 80048; 80076; 83735; 83880; 84484; 85025; 85610; 93005; 99283

== ENCOUNTER 2021-05-15 20:34 | Emergency (ER) | payer OTHER ==
--- OUTSIDE RECORDS SUMMARY | 2021-05-15 20:38 | XMS REPORT | Continuity of Care Document ---
:1955 Author Organization [facility] t Address [address] [place] [address] Care Team Providers Name Role Phone Destini Tisha Primary Care Physician NETO OGLESBY Attending Clinician Unavailable Neto Oglesby MD Attending Clinician Only, Test Attending Clinician Unavailable Pob, Lab Main Attending Clinician Unavailable Doctor Unassigned, Name Attending Clinician Unavailable NETO OGLESBY Admitting Clinician Unavailable Neto Oglesby MD Admitting Clinician Payers Payer Name Policy Type Policy Number Effective Date Expiration Date S [facility] MEDICARE PART A \T\ [id number] 2020 B 00:00:00 [facility] [id number] 2021 00:00:00 Problems This patient has no known problems. Allergies, Adverse Reactions, Alerts Allergy Allergy Status Severity Reaction(s) Onset Inactive Treating Comm ents Source Name Type Date Date Clinician NO KNOWN Drug Active Univers ALLERGIE Class ity of S [facility] Social History Social Habit Start Date Stop Date Quantity Comments Source Exposure to Not sure [facility] SARS-CoV-2 (event) Medica l Branch Tobacco use and 2021-03-11 2021-03-11 Never used [facility] exposure 00:00:00 00:00:00 [facility] [place] Sex [birth year] [facility] 00:00:00 00:00:00 [facility] [place] Smoking Status Start Date Stop Date Source Never smoker [facility] Medications Ordered Filled Start Stop Current Ordering Indication Dosage Frequency Signature Comments Components Source Medication Medication Date Date Medication? Clinician (SIG) Name Name lisinopriL 2020-06 Yes 5mg Take 5 mg Un nura 5 mg tablet 19 by mouth ity of 09:10: daily. [address] lisinopriL 2020-06 Yes 5mg Take 5 mg Un nura 5 mg tablet 19 by mouth ity of 09:10: daily. [address] neomycin-po 2020-06 Yes PRN, Univer s lymyxin-dex 07-08 Starting ity of amethasone 18:59: on [facility] (MAXITROL) 00 05/08/21 Medic al 3.5 at 1259, Branch mg/g-10,000 Until unit/g-0.1 Discontinu % ed, ophthalmic Routine, ointment Intra-op neomycin-po 2020-06- No PRN, Unive rs lymyxin-dex 07-08 Starting ity of amethasone 18:59: 17:10 on [facility] (MAXITROL) 00 :15 05/08/21 Medic al 3.5 at 1259, Branch mg/g-10,000 Until Fri unit/g-0.1 05/09/21 % at 1110, ophthalmic Routine, ointment Intra-op gentamicin 2020-06 Yes PRN, Univers injection 07-08 Starting ity of 18:56: on [facility] 00 05/08/21 Medical at 1256, Branch Until Discontinu ed, GERSON, Intra-op gentamicin 2020-06- No PRN, Univer s injection 07-08 Starting ity o f 18:56: 17:[address] [facility] 00 :15 05/08/21 Medical at 1256, Branch Until 05/09/21 at 1110, GERSON, Intra-op NaCl 0.9% 2020-06 Yes PRN, Univers (NS) 07-08 Starting ity of injection 18:55: on [facility] 00 05/08/21 Medical at 1255, Branch Until Discontinu ed, Routine, Intra-op NaCl 0.9% 2020-06- No PRN, Univers (NS) 07-08 Starting ity of injection 18:55: 17:[address] [facility] 00 :15 05/08/21 Medical at 1255, Branch Until Wed05/09/21 at 1110, Routine, Intra-op water for 2020-06 Yes PRN, Univers irrigation 18 Starting ity o f irrigation 18:40: on [place] solution 00 05/08/21 Medical at 1240, Branch Until Discontinu ed, Routine, Intra-op water for 2020-06- No PRN, Univers irrigation 07-08 Starting ity of irrigation 18:40: 17:10 [place] solution 00 :15 05/08/21 Medical at 1240, Branch Until Wed05/09/21 at 1110, Routine, Intra-op tetracaine 2020-06 Yes PRN, Univers (PONTOCAINE 07-08 Starting ity of ) 0.5 % 18:38: on [place] ophthalmic 00 05/08/21 Medic al drops at 1238, Branch Until Discontinu ed, Routine, Intra-op tetracaine 2020-06- No PRN, Univer s (PONTOCAINE 07-08 Starting ity of ) 0.5 % 18:38: 17:10 on [place] ophthalmic 00 :15 05/08/21 Medic al drops at 1238, Branch Until Wed05/09/21 at 1110, Routine, Intra-op eye block 2020-06 Yes PRN, Univers syringe 11 07-08 Starting ity o f mL 18:37: on [place] 00 05/08/21 Medical at 1237, Branch Until Discontinu ed, Intra-op eye block 2020-06- No PRN, Univers syringe 11 07-0819 Starting ity of mL 18:37: 17:10 on [place] 00 :15 05/08/21 Medical at 1237, Branch Until Wed05/09/21 at 1110, Intra-op EPINEPHrine 2020-06 Yes PRN, Univer s (PF) 18 Starting ity of 1:1,000 (1 16:26: on [place] mg/mL) 00 05/08/21 Medical (ADRENALIN at 1026, Branc h (PF)) Until injection Discontinu ed, Routine, Intra-op DUOVISC 2020-06 Yes PRN, Univers (DUOVISC 18 Starting ity of VISCO 16:26: on [place] ELASTIC) 3 00 05/08/21 Medic al %-4 %(0.5 at 1026, Branch mL) 1 % Until (0.55 mL) Discontinu intraocular ed, injection Routine, Intra-op dexamethaso 2020-06 Yes PRN, Univer s ne 07-08 Starting ity of (DECADRON 16:26: on [place] PHOSPHATE) 00 05/08/21 Medic al injection at 1026, Branch Until Discontinu ed, Routine, Intra-op EPINEPHrine 2020-06- No PRN, Unive rs (PF) 07-08 Starting ity of 1:1,000 (1 16:26: 17:10 on [place] mg/mL) 00 :15 05/08/21 Medical (ADRENALIN at 1026, Branc h (PF)) Until Fri injection 05/09/21 at 1110, Routine, Intra-op DUOVISC 2020-06- No PRN, Univers (DUOVISC 07-08 Starting ity of VISCO 16:26: 17:10 on [place] ELASTIC) 3 00 :15 05/08/21 Medic al %-4 %(0.5 at 1026, Branch mL) 1 % Until Fri (0.55 mL) 05/09/21 intraocular at 1110, injection Routine, Intra-op dexamethaso 2020-06- No PRN, Unive rs ne 07-08 Starting ity of (DECADRON 16:26: 17:10 on [place] PHOSPHATE) 00 :15 05/08/21 Medic al injection at 1026, Branch Until 05/09/21 at 1110, Routine, Intra-op ceFAZolin 2020-06 Yes PRN, Univers (ANCEF) 07-08 Starting ity of injection 16:25: on [place] 00 05/08/21 Medical at 1025, Branch Until Discontinu ed, GERSON, Intra-op ceFAZolin 2020-06- No PRN, Univers (ANCEF) 07-08 Starting ity of injection 16:25: 17:10 on [place] 00 :15 05/08/21 Medical at 1025, Branch Until 05/09/21 at 1110, GERSON, Intra-op balanced 2020-06 Yes PRN, Univers salt soln 18 Starting ity of no.2 irrig. 16:24: [place] (BSS) 00 05/08/21 Medical ophthalmic at 1024, Branc h solution Until Discontinu ed, Routine, Intra-op balanced 2020-06- No PRN, Univers salt soln 07-08 Starting ity o f no.2 irrig. 16:24: 17:10 on [place] (BSS) 00 :15 05/08/21 Medical ophthalmic at 1024, Branc h solution Until 05/09/21 at 1110, Routine, Intra-op cyclopent 2020-06- No .5mL 0.5 mL, Univ ers 1%-tropic 07-08 Right Eye, ity of 1%-phenyl 16:15: 16:19 ONCE, [place] 2.5%-ketor 00 :00 dose, On Medic al 0.5% [place] (MYDRIATIC 05/08/21 #5) at 1015, ophthalmic Routine, solution DSU Pre-op syringe 0.5 mL lactated 2020-06- No 1000mL at 42 Unive rs ringers IV - 11-18 mL/hr, ity of infusion 16:15: 16:19 1,000 mL, [place] 1,000 mL 00 :00 IV Medical Infusion, Branch ONCE, 1 dose, On [place]ne 05/08/21 at 1015, Routine, DSU Pre-op cyclopent 2020-06- No .5mL 0.5 mL, Univ ers 1%-tropic 07-08 Right Eye, ity of 1%-phenyl 16:15: 16:19 ONCE, [place] 2.5%-ketor 00 :00 dose, On Medic al 0.5% [place] (MYDRIATIC 05/08/21 #5) at 1015, ophthalmic Routine, solution DSU Pre-op syringe 0.5 mL lactated 2020-06- No 1000mL at 42 Unive rs ringers IV 1-18 11-18 mL/hr, ity of infusion 16:15: 16:19 1,000 mL, Jos[place] 1,000 mL 00 :00 IV Medical Infusion, Branch ONCE, 1 dose, On [place] 05/08/21 at 1015, Routine, DSU Pre-op carvediloL 2020-06 Yes Univers 3.125 mg 1-07 ity of tablet 00:00: [place] [facility] carvediloL 2020-06 Yes Univers 3.125 mg 1-07 ity of tablet 00:00: [place] [facility] atenoloL 50 2020-06 Yes Univer s mg tablet 0-26 ity of 00:00: [place] [facility] atenoloL 50 2020-06 Yes Univer s mg tablet 0-26 ity of 00:00: [place] [facility] losartan 25 Yes Univer s mg tablet 03-18 ity of 00:00: [place] [facility] losartan 25 Yes Univer s mg tablet 03-18 ity of 00:00: [place] [facility] NaCl 0.9% Yes PRN, Univers (NS) 03-13 Starting ity of injection 16:04: on [facility] 03/13/[address] Until Discontinu ed, Routine, Intra-op neomycin-po Yes PRN, Univer s lymyxin-dex 03-13 Starting ity of amethasone 16:04: on [facility] (MAXITROL) 03/13/21 at [facility] ical [address] [place] [address] mg/g-10,000 Until unit/g-0.1 Discontinu % ed, ophthalmic Routine, ointment Intra-op gentamicin Yes PRN, Univers injection 03-13 Starting ity of 16:04: on [facility] 03/13/[address] Until Discontinu ed, GERSON, Intra-op EPINEPHrine Yes PRN, Univer s (PF) 03-13 Starting ity of 1:1,000 (1 16:04: on [facility] mg/mL) 03/13/21 at [facility] (ADRENALIN [address] [place] [address] (PF)) Until injection Discontinu ed, Routine, Intra-op DUOVISC 2020-0 Yes PRN, Univers (DUOVISC 03-13 Starting ity of VISCO 16:04: on [facility] ELASTIC) 3 03/13/21 at Med ical %-4 %(0.5 1104, [...] [place] (MAXITROL[place] 00 :36 03/13/21 at [facility] ical 3.5 1104, Branch mg/g-10,000 Until [place] [...] [place] mg/mL) 00 :36 03/13/21 at [facility] (ADRENALIN 1104, Branch (PF)) Until [place] injection 03/13/21 at 1358, Routine, Intra-op DUOVISC 2020- No PRN, Univers (DUOVISC 03-13 Starting ity of VISCO 16:04: 18:58 on [place] ELASTIC) 3 00 :36 03/13/21 at [facility] ical %-4 %(0.5 1104, Branch mL) 1 % Until [place] (0.55 mL) 03/13/21 at intraocular 1358, injection Routine, Intra-op dexamethaso Yes PRN, Univer s ne 03-13 Starting ity of (DECADRON 16:03: on [place] PHOSPHATE) 00 03/13/21 at [facility] ical injection 1103, Branch Until Discontinu ed, Routine, Intra-op ceFAZolin Yes PRN, Univers (ANCEF) 03-13 Starting ity of injection 16:03: on [place] 00 03/13/21 at [facility] 1103, Branch Until Discontinu ed, GERSON, Intra-op dexamethaso 2020- No PRN, Unive rs ne 03-13 Starting ity of (DECADRON 16:03: 18:58 on [place] PHOSPHATE) 00 :36 03/13/21 at [facility] ical injection 1103, Branch Until [place]ne 03/13/21 at 1358, Routine, Intra-op ceFAZolin 2020- No PRN, Univers (ANCEF) 03-13 Starting ity of injection 16:03: 18:58 on [place] 00 :36 03/13/21 at [facility] 1103, Branch Until [place] 03/13/21 at 1358, GERSON, Intra-op balanced Yes PRN, Univers salt soln 03-13 Starting ity of no.2 irrig. 15:57: [place] (BSS) 00 03/13/21 at [facility] ophthalmic 1057, Branch solution Until Discontinu ed, Routine, Intra-op balanced 2020- No PRN, Univers salt soln 03-13 Starting ity o f no.2 irrig. 15:57: 18:58 on [place] (BSS) 00 :36 03/13/21 at [facility] ophthalmic 1057, Branch solution Until [place]ne 03/13/21 at 1358, Routine, Intra-op water for Yes PRN, Univers irrigation 03-13 Starting ity o f irrigation 15:51: on [place] solution 00 03/13/21 at [facility] 1051, Branch Until Discontinu ed, Routine, Intra-op tetracaine Yes PRN, Univers (PONTOCAINE 03-13 Starting ity of ) 0.5 % 15:51: on [place] ophthalmic 00 03/13/21 at [facility] ical drops 1051, Branch Until Discontinu ed, Routine, Intra-op water for 2020- No PRN, Univers irrigation 03-13 Starting ity of irrigation 15:51: 18:58 [place] solution 00 :36 03/13/21 at Medic al 1051, Branch Until [place]ne 03/13/21 at 1358, Routine, Intra-op tetracaine 2020- No PRN, Univer s (PONTOCAINE 03-13 Starting ity of ) 0.5 % 15:51: 18:58 on [place] ophthalmic 00 :36 03/13/21 at [facility] ical drops 1051, Branch Until [place]ne 03/13/21 at 1358, Routine, Intra-op eye block Yes PRN, Univers syringe 03-13 Starting ity o f mL 15:50: on [place] 00 03/13/21 at [facility] 1050, Branch [facility] 2020- No PRN, Univers syringe 11 03-13 Starting ity of mL 15:50: 18:[address] [facility] 00 :36 03/13/21 at [facility] 1050, Branch Until [place]ne 03/13/21 at 1358, [...] 00 :00 dose, On Medical 0.5 mL [facility] Branch syringe 03/13/21 at 0900, Routine, DSU [...] 03-13 by mouth ity of 11:58: daily. [address] lisinopriL 2020-0 Yes 5mg Take 5 mg Un nura 5 mg tablet 03-13 by mouth ity of 11:58: daily. [address] lisinopriL 2020-0 Yes 5mg Take 5 mg Un nura 5 mg tablet 03-13 by mouth ity of 11:58: daily. [address] lisinopriL 2020-0 Yes 5mg Take 5 mg Un nura 5 mg tablet 03-13 by mouth ity of 11:58: daily. [address] lisinopriL 2020-0 Yes 5mg Take 5 mg Un nura 5 mg tablet 03-13 by mouth ity of 11:58: daily. [address] Vital Signs Vital Name Observation Time Observation Value Comments Source Heart rate 2021-05-08 19:17:00 53 /min [facility] Respiratory rate 2021-05-08 19:17:00 14 /min [facility] Oxygen saturation in 2021-05-08 19:17:00 100 /min [facility] Arterial blood by [facility] Pulse oximetry Branch Systolic blood 2021-05-08 19:14:00 153 mm[Hg] Univer sity of pressure [facility] Diastolic blood 2021-05-08 19:14:00 69 mm[Hg] Unive rsity of pressure [facility] Body temperature 2021-05-08 19:03:00 36.39 Nel [facility] Body height 2021-04-24 15:23:00 160 cm [facility] Body weight 2021-04-24 15:23:00 65.3 kg [facility] BMI 2021-04-24 15:23:00 25.51 kg/m2 [facility] [place] [facility] Systolic blood 2021-05-08 16:12:00 133 mm[Hg] Univer sity of pressure [place] [facility] Diastolic blood 2021-05-08 16:12:00 76 mm[Hg] Unive rsity of pressure [place] [facility] Heart rate 2021-05-08 16:12:00 58 /min [facility] [place] [facility] Body temperature 2021-05-08 16:12:00 36.78 Nel [facility] [place] [facility] Respiratory rate 2021-05-08 16:12:00 14 /min [facility] [place] [facility] Oxygen saturation in 2021-05-08 16:12:00 100 /min University of Arterial blood by [place] [employer] Pulse oximetry Branch Body height 2021-04-24 15:23:00 160 cm [facility] [place] [facility] Body weight 2021-04-24 15:23:00 65.3 kg [facility] [place] [facility] BMI 2021-04-24 15:23:00 25.51 kg/m2 [facility] [place] [facility] Systolic blood 2021-03-13 16:31:00 149 mm[Hg] Univer sity of pressure [place] [facility] Diastolic blood 2021-03-13 16:31:00 71 mm[Hg] Unive rsity of pressure [place] [facility] Heart rate 2021-03-13 16:31:00 53 /min [facility] [place] [facility] Oxygen saturation in 2021-03-13 16:31:00 100 /min University of Arterial blood by [place] [employer] Pulse oximetry Branch Body temperature 2021-03-13 14:03:00 36.33 Nel [facility] [place] [facility] Respiratory rate 2021-03-13 14:03:00 18 /min Univ [facility] [place] [facility] Body height 2021-03-11 18:15:00 160 cm [facility] [place] [facility] Body weight 2021-03-11 18:15:00 65.318 kg [facility] [place] [facility] BMI 2021-03-11 18:15:00 25.51 kg/m2 [facility] [place] [facility] Systolic blood 2021-03-13 16:31:00 149 mm[Hg] Univer sity of pressure [place] [facility] Diastolic blood 2021-03-13 16:31:00 71 mm[Hg] [facility] Heart rate 2021-03-13 16:31:00 53 /min [facility] Oxygen saturation in 2021-03-13 16:31:00 100 /min [facility] Arterial blood by [facility] Pulse oximetry Branch Body temperature 2021-03-13 14:03:00 36.33 Nel [facility] rate 2021-03-13 14:03:00 18 /min [facility] Body height 2021-03-11 18:15:00 160 cm [facility] Body weight 2021-03-11 18:15:00 65.318 kg [facility] BMI 2021-03-11 18:15:00 25.51 kg/m2 [facility] Procedures Procedure Date / Time Performing Source Performed Clinician PHACOEMULSIFICATION OF 2021-05-08 [facility] CATARACT WITH INTRAOCULAR 18:26:00 [facility] LENS IMPLANT PHACOEMULSIFICATION OF 2021-05-08 [facility] CATARACT WITH INTRAOCULAR 18:26:00 [facility] [place] LENS IMPLANT ASSIGNMENT OF BENEFITS 2021-05-06 Doctor Unassigned, [facility] 20:54:59 [place] [facility] PHACOEMULSIFICATION OF 2021-03-13 [facility] CATARACT WITH INTRAOCULAR 15:40:00 Neto Medica [facility] [place] LENS IMPLANT COVID-19 (ID NOW RAPID 2021-03-11 [facility] TESTING) 17:54:00 [facility] ASSIGNMENT OF BENEFITS 2021-03-11 Doctor Unassigned, [facility] 17:46:35 [place] [facility] [place] Encounters Start End Encounter Admission Attending Care Care Encounter Source Date/Time Date/Time Type Type Clinicians Facility Department ID 2021-04-22 Outpatient R DWAYNE NMTRINI OPH [id number] Univers 00:16:07 BRENDA kaleigh [facility] 2021-05-08 2021-05-08 [facility] Dwayne [facility] [id number] Univers 10:01:00 13:45:00 Encounter Brenda DRAPER [id number] ity [id number] [id number] [facility] 071 Branch 2021-05-08 2021-05-08 Outpatient R DWAYNE [facility] OPH [id number] Univers 10:01:00 13:45:00 BRENDA kaleigh [facility] 2021-05-08 2021-05-08 Surgery Dwayne [facility] 1.2.840.114 [id number] Univers 12:07:00 12:41:00 Brenda DRAPER [id number] i ty of [id number] [id number] [facility] 020 Branch 2021-05-07 2021-05-07 Outpatient R [facility] [id number] Univers 11:30:00 11:30:00 [id number] ity [facility] 2021-05-07 2021-05-07 Outpatient R DWAYNE [facility] [id number] Univers 11:30:00 11:30:00 BRENDA kaleigh [facility] 2021-05-07 2021-05-07 Laboratory Only, Adc Test [facility] 1.2.840. 114 [id number] Univers 09:54:29 10:09:29 Only Brenda Oglesby 350.1.1 3.10 ity [place]onne [place] [id number] [place] [id number] [facility] 353 [place] 2021-05-06 2021-05-06 [employer] Bernie, Hemalatha Lab Main [facility] 1.2.8 40.114 [id number] Univers 14:57:39 15:12:39 Visit Brenda Oglesby 350.1.1 3.10 ity [place]onne [place] [id number] PROFESSIO [id number] [place] [facility] 353 Branch [facility] 2021-05-06 2021-05-06 Outpatient R [facility] [id number] Univers 15:00:00 15:00:00 [id number] ity [facility] 2021-05-06 2021-05-06 Outpatient R DWAYNE [facility] [id number] Univers 15:00:00 15:00:00 BRENDA everett [facility] 2021-05-06 2021-05-06 Orders Doctor BARKLEY [id number] [id number] Univers 00:00:00 00:00:00 Only Unassigned, IFRAH [id number] ity of [place] [facility] [id number] Josue as [id number] [facility] 009 Branch 2021-04-29 2021-04-29 Outpatient R [facility] [id number] Univers 09:15:00 09:15:00 [id number] ity of [facility] 2021-03-13 2021-03-13 [facility] 1.2.840.114 [id number] Univers 08:54:00 11:58:00 Encounter Brenda Draper [id number] ity of [id number] Surgical [id number] [facility] 071 [place] 2021-03-13 2021-03-13 Surgery [facility] 1.2.840.114 [id number] Univers 11:05:00 11:42:00 Brenda Draper [id number] i ty of [place] [id number] [id number] [facility] 020 Branch 2021-03-12 2021-03-12 Outpatient R [facility] [id number] Univers 10:15:00 10:15:00 BRENDA [id number] ity [facility] 2021-03-11 2021-03-11 Laboratory Only, Adc Test [facility] 1.2.840. 114 [id number] Univers 12:45:47 13:00:47 Only Brenda Oglesby 350.1.1 3.10 ity of [id number] [id number] [facility] 353 Branch 2021-03-11 2021-03-11 Outpatient R [facility] [id number] Univers 13:00:00 13:00:00 [facility] 2021-03-11 2021-03-11 Orders Doctor BARKLEY 1.2.840.114 [id number] Univers 00:00:00 00:00:00 Only Unassigned, IFRAH [id number] ity of [place] [facility] [id number] Josue as [id number] [facility] 009 Branch Results This patient has no known results.
[2021-05-15] MEDS ORDERED: MORPHINE 2 MG/ML SYR ONE (21:12)
[2021-05-15] MEDS ORDERED: ASPIRIN 81 MG CHEWABLE TABLET ONE (21:12)
[2021-05-15] MEDS ORDERED: ONDANSETRON 4 MG/2 ML VIAL ONE (21:13)
--- NOTE | 2021-05-15 21:51 | RAD REPORT ---
EXAM DESCRIPTION: Edgardo Single View05/15/2021 9:33 pm CLINICAL HISTORY: Chest pain COMPARISON: April 28, 2021 FINDINGS: The lungs appear clear of acute infiltrate. The heart is normal size IMPRESSION: No acute abnormalities displayed
[2021-05-15 22:00] LABS: Absolute Lymphocytes (CBC) 1.9 K/uL (0.7-4.9); Basophils % 0.7 % (0-1.3); Hematocrit 32.4 % (36.0-45.0); Lymphocytes % 39.3 % (15.3-44.8); MPV 7.3 fL (7.6-11.3); RBC Red Blood Cell Count 3.34 M/uL (3.86-4.86)
[2021-05-15 22:09] LABS: Protime INR 1.04
[2021-05-15 22:18] LABS: ALT/SGPT 16 U/L (12-78); AST/SGOT 18 U/L (15-37); Albumin 3.7 g/dL (3.4-5.0); Alkaline Phosphatase 60 U/L (45-117); BUN Blood Urea Nitrogen 6 mg/dL (7-18); Bicarbonate 25 mmol/L (21-32); Bilirubin Direct 0.1 mg/dL (0-0.2); Bilirubin Total 0.5 mg/dL (0.2-1.0); Glucose Level 93 mg/dL (74-106); Magnesium 2.6 mg/dL (1.8-2.4); NT PRO-BNP 121 pg/mL (<125); Potassium 3.4 mmol/L (3.5-5.1); Protein, Total 7.2 g/dL (6.4-8.2); Sodium Level 141 mmol/L (136-145); Troponin (Emerg Dept Use Only) < 0.02 ng/mL (0.0-0.045)
--- NOTE | 2021-05-16 02:04 | ER ---
Nurse's Notes [facility] Name: Tess Deal Age: 65 yrs Sex: Female : 1955 Arrival Date: 05/15/2021 Time: 20:39 Bed 16 Private MD: Diagnosis: Chest pain, unspecified Presentation: 05/15 20:42 Chief complaint: She has been having chest pain for the past hour. She tried taking her aj1 Nitro twice but with no relief. Coronavirus screen: Vaccine status: Patient reports receiving the 2nd dose of the covid vaccine. Ebola Screen: Patient denies travel to an Ebola-affected area in the 21 days before illness onset. Initial Sepsis Screen: Does the patient meet any 2 criteria? No. Patient's initial sepsis screen is negative. Does the patient have a suspected source of infection? No. Patient's initial sepsis screen is negative. Risk Assessment: Do you want to hurt yourself or someone else? Patient reports no desire to harm self or others. Onset of symptoms was May 15, 2021. 20:42 Method Of Arrival: Ambulatory aj1 20:42 Acuity: PRADEEP 3 aj1 Triage Assessment: 20:42 General: Appears in no apparent distress. uncomfortable, Behavior is calm, cooperative, aj1 appropriate for age. Pain: Complains of pain in anterior aspect of left upper chest Pain does not radiate. Neuro: Level of Consciousness is awake, alert, obeys commands. Cardiovascular: Patient's skin is warm and dry. Respiratory: Airway is patent Respiratory effort is even, unlabored, Respiratory pattern is regular, symmetrical. Historical: - Home Meds: 20:45 aspirin 81 mg Oral tab 81 mg daily [Active]; carvedilol 3.125 mg Oral tab 1 tab 2 times aj1 per day [Active]; nitroglycerin 0.4 mg SL subl 1 tab every 5 minutes [Active]; Nitroglycerin Oral [Active]; olmesartan 40 mg Oral tab 1 tab once daily [Active]; zolpidem 10 mg Oral tab 1 tab once daily [Active]; - PMHx: 20:45 Anxiety; Hypertensive disorder; aj1 - PSHx: 20:45 section; Cholecystectomy; aj1 - Immunization history:: Flu vaccine is not up to date. - Social history:: Smoking status: Patient/guardian denies using tobacco. Screenin:49 Abuse screen: Denies threats or abuse. Denies injuries from another. Nutritional aj1 screening: No deficits noted. Tuberculosis screening: No symptoms or risk factors identified. Fall Risk None identified. Assessment: 05/16 00:00 Pain: Complains of pain in mid-sternal area Pain does not radiate. Pain currently is 4 mr2 out of 10 on a pain scale. Quality of pain is described as burning, Pain began gradually, 4 hours ago. Is intermittent. Vital Signs: 05/15 20:42 BP 160 / 76; Pulse 64; Resp 18; Temp 98.1; Pulse Ox 98% on R/A; Weight 64.86 kg (R); aj1 Height 5 ft. 3 in. (160.02 cm) (R); Pain 01/28; 05/16 01:59 BP 132 / 76; Pulse 58; Resp 17; Temp 98.3; Pulse Ox 99% on R/A; mr2 05/15 20:42 Body Mass Index 25.33 (64.86 kg, 160.02 cm) aj1 ED Course: 05/15 20:39 Patient arrived in ED. ja2 20:42 Arm band placed on Patient placed in an exam room. aj1 20:44 Triage completed. aj1 20:48 Ratna Tilley, RN is Primary Nurse. aj1 20:48 Thomas Monroe MD is Attending Physician. 7 20:49 Patient has correct armband on for positive identification. Bed in low position. Side aj1 rails up X2. Adult w/ patient. nuclear monitoring technician on. 20:49 No provider procedures requiring assistance completed. Patient maintains SpO2 aj1 saturation greater than 95% on room air. 21:33 XRAY Chest (1 view) In Process Unspecified. EDMS 22:40 Basic Metabolic Panel Sent. mr2 23:39 CT Chest For PE Angio In Process Unspecified. EDMS 05/16 02:04 Bret Henriquez MD is Referral Physician. [facility] 03:24 IV discontinued. mr2 Administered Medications: 05/15 21:14 Drug: morphine 2 mg Route: IVP; Site: left antecubital; aj1 21:14 Drug: Zofran (Ondansetron) 4 mg Route: IVP; Site: left antecubital; aj1 21:14 Drug: Aspirin Chewable Tablet 324 mg Route: PO; aj1 Outcome: 05/16 02:04 Discharge ordered by . job 03:24 Discharged to home ambulatory. mr2 03:24 Condition: stable 03:24 Discharge instructions given to patient, Instructed on discharge instructions, Demonstrated understanding of instructions. 03:24 Patient left the ED. mr2 Signatures: Dispatcher [employer] EDRatna Zambrano RN RN aj1 Thomas Monroe MD MD 7 Susan Francois Mike, RN RN mr2
--- NOTE | 2021-05-16 02:04 | EDPHYS ---
Physician Documentation [facility] Name: Tess Deal Age: 65 yrs Sex: Female : 1955 Arrival Date: 05/15/2021 Time: 20:39 Bed 16 Private MD: ED Physician Thomas Monroe HPI: 05/15 21:02 This 65 yrs old Female presents to ER via Ambulatory with complaints of Chest mh7 Pain, High Blood Pressure. 21:02 The patient or guardian reports chest pain that is located primarily in the anterior mh7 chest wall, left. Onset: just prior to arrival, today. The pain does not radiate. Associated signs and symptoms: Pertinent positives: dizziness, lightheadedness, palpitations, Pertinent negatives: abdominal pain, cough, diaphoresis, headache, lower extremity pain, lower extremity swelling, nausea, near syncope, recent travel, shortness of breath, syncope, vomiting. Associated signs and symptoms: Pertinent negatives:. The chest pain is described as a pressure. Duration: The patient or guardian reports multiple episodes, that are intermittent, that wax and wane, with no pattern. Modifying factors: The symptoms are alleviated by nothing. the symptoms are aggravated by nothing. Severity of pain: At its worst the pain was moderate today, in the emergency department the pain is unchanged. Historical: - Home Meds: 20:45 aspirin 81 mg Oral tab 81 mg daily [Active]; carvedilol 3.125 mg Oral tab 1 tab 2 times aj1 per day [Active]; nitroglycerin 0.4 mg SL subl 1 tab every 5 minutes [Active]; Nitroglycerin Oral [Active]; olmesartan 40 mg Oral tab 1 tab once daily [Active]; zolpidem 10 mg Oral tab 1 tab once daily [Active]; - PMHx: 20:45 Anxiety; Hypertensive disorder; aj1 - PSHx: 20:45 section; Cholecystectomy; aj1 - Immunization history:: Flu vaccine is not up to date. - Social history:: Smoking status: Patient/guardian denies using tobacco. ROS: 21:02 Constitutional: Negative for fever, chills, and weight loss, Eyes: Negative for injury, mh7 pain, redness, and discharge, ENT: Negative for injury, pain, and discharge, Neck: Negative for injury, pain, and swelling, Abdomen/GI: Negative for abdominal pain, nausea, vomiting, diarrhea, and constipation, Back: Negative for injury and pain, : Negative for injury, bleeding, discharge, and swelling, MS/Extremity: Negative for injury and deformity, Skin: Negative for injury, rash, and discoloration, Neuro: Negative for headache, weakness, numbness, tingling, and seizure, Psych: Negative for depression, anxiety, suicide ideation, homicidal ideation, and hallucinations, Allergy/Immunology: Negative for hives, rash, and allergies, Endocrine: Negative for neck swelling, polydipsia, polyuria, polyphagia, and marked weight changes, Hematologic/Lymphatic: Negative for swollen nodes, abnormal bleeding, and unusual bruising. Exam: 21:02 Constitutional: This is a well developed, well nourished patient who is awake, alert, mh7 and in no acute distress. Head/Face: Normocephalic, atraumatic. Eyes: Pupils equal round and reactive to light, extra-ocular motions intact. Lids and lashes normal. Conjunctiva and sclera are non-icteric and not injected. Cornea within normal limits. Periorbital areas with no swelling, redness, or edema. Neck: Trachea midline, no thyromegaly or masses palpated, and no cervical lymphadenopathy. Supple, full range of motion without nuchal rigidity, or vertebral point tenderness. No Meningismus. Cardiovascular: Regular rate and rhythm with a normal S1 and S2. No gallops, murmurs, or rubs. Normal PMI, no JVD. No pulse deficits. Respiratory: Lungs have equal breath sounds bilaterally, clear to auscultation and percussion. No rales, rhonchi or wheezes noted. No increased work of breathing, no retractions or nasal flaring. Abdomen/GI: Soft, non-tender, with normal bowel sounds. No distension or tympany. No guarding or rebound. No evidence of tenderness throughout. Back: No spinal tenderness. No costovertebral tenderness. Full range of motion. Skin: Warm, dry with normal turgor. Normal color with no rashes, no lesions, and no evidence of cellulitis. MS/ Extremity: Pulses equal, no cyanosis. Neurovascular intact. Full, normal range of motion. Neuro: Awake and alert, GCS 15, oriented to person, place, time, and situation. Cranial nerves II-XII grossly intact. Motor strength 5/5 in all extremities. Sensory grossly intact. Cerebellar exam normal. Normal gait. Psych: Awake, alert, with orientation to person, place and time. Behavior, mood, and affect are within normal limits. 21:02 Chest/axilla: Inspection: normal, Palpation: tenderness, that is moderate, of the mh7 anterior aspect of left upper chest, that totally reproduces the patient's complaints, Axilla: are normal, Lymph nodes: lymphadenopathy is not appreciated. Vital Signs: 20:42 BP 160 / 76; Pulse 64; Resp 18; Temp 98.1; Pulse Ox 98% on R/A; Weight 64.86 kg (R); aj1 Height 5 ft. 3 in. (160.02 cm) (R); Pain 01/28; 05/16 01:59 BP 132 / 76; Pulse 58; Resp 17; Temp 98.3; Pulse Ox 99% on R/A; mr2 05/15 20:42 Body Mass Index 25.33 (64.86 kg, 160.02 cm) aj1 MDM: 05/15 21:02 Differential diagnosis: acute myocardial infarction, acute pericarditis, anxiety, mh7 coronary artery disease chest wall pain, congestive heart failure costochondritis, gastritis, gastroesophageal reflux disease (GERD), pericarditis, pleurisy, pneumonia, pneumothorax, pulmonary embolus, stable angina, thoracic aortic disection. HEART Score: History: Slightly Suspicious (0), ECG: Normal (0), Age: > or = 65 years (2), Risk Factors: 1 or 2 risk factors (1), [Hypertension] Troponin: < or = 1 x Normal Limit (0), Total Score = 3. The patient was given aspirin in the Emergency Department. Data reviewed: vital signs, nurses notes, old medical records, lab test result(s), cardiac enzymes, CBC, electrolytes, EKG, radiologic studies, CT scan, plain films. Data interpreted: Pulse oximetry: on room air is 99 %. Interpretation: normal. Counseling: I had a detailed discussion with the patient and/or guardian regarding: the historical points, exam findings, and any diagnostic results supporting the discharge/admit diagnosis, lab results, radiology results, the need for outpatient follow up, to return to the emergency department if symptoms worsen or persist or if there are any questions or concerns that arise at home. 21:02 Refusal of service: The patient/guardian displays adequate decision making capability [facility] and despite a detailed discussion of alternatives, benefits, risks, and consequences refuses: Admission to the hospital for further work-up and treatment. 05/16 02:04 Patient medically screened. [facility] 02:05 ED course: Well-appearing, no acute distress, vital signs stable, no focal neurological [facility] deficits. No chest pain, shortness of breath, nausea, vomiting, abdominal pain. Patient has had multiple visits in the past month for same issue including admission and evaluation by cardiology without significant findings. Discussed all test results and findings with the patient and answered all of her questions. Patient states that she is ready to be discharged from the ED at this time.. 05/15 21:01 Order name: Basic Metabolic Panel [facility] 05/15 21: Order name: CBC with Diff; Complete Time: 22:38 [facility] 05/15 21:01 Order name: LFT's; Complete Time: 22:38 [facility] 05/15 21: Order name: Magnesium; Complete Time: 22:38 [facility] 05/15 21:01 Order name: NT PRO-BNP; Complete Time: 22:38 [facility] 05/15 21:01 Order name: PT-INR; Complete Time: 22:38 [facility] 05/15 21:01 Order name: Troponin (emerg Dept Use Only); Complete Time: 22:38 [facility] 05/15 21:01 Order name: XRAY Chest (1 view); Complete Time: 21:53 [facility] 05/15 21:02 Order name: Basic Metabolic Panel; Complete Time: 22:38 EDUT 05/15 22:39 Order name: CT Chest For PE Angio [facility] 05/16 00:14 Order name: Troponin (emerg Dept Use Only); Complete Time: 01:08 [facility] 05/15 21:01 Order name: EKG; Complete Time: 21:02 [facility] 05/15 21:01 Order name: Cardiac monitoring; Complete Time: 22:40 [facility] 05/15 21:01 Order name: EKG - Nurse/Tech; Complete Time: 21:19 [facility] 05/15 21:01 Order name: IV Saline Lock; Complete Time: 22:40 [facility] 05/15 21:01 Order name: Labs collected and sent; Complete Time: 22:40 [facility] 05/15 21:01 Order name: O2 Per Protocol; Complete Time: :40 [facility] 05/15 21:01 Order name: O2 Sat Monitoring; Complete Time: :40 [facility] Administered Medications: 05/15 21:14 Drug: morphine 2 mg Route: IVP; Site: left antecubital; aj1 21:14 Drug: Zofran (Ondansetron) 4 mg Route: IVP; Site: left antecubital; aj1 21:14 Drug: Aspirin Chewable Tablet 324 mg Route: PO; aj1 Disposition Summary: 05/16/21 02:04 Discharge Ordered Location: Home [facility] Problem: an acute exacerbation [facility] Symptoms: have improved [facility] Condition: Stable [facility] Diagnosis - Chest pain, unspecified [facility] Followup: [facility] - With: Private Physician - When: 1 - 2 days - Reason: Worsening of condition, Recheck today's complaints, Continuance of care, Re-evaluation by your physician Followup: [facility] - With: Bret Henriquez MD - When: 1 - 2 days - Reason: Worsening of condition, Recheck today's complaints, Continuance of care, Re-evaluation by your physician Discharge Instructions: - Discharge Summary Sheet [facility] - Nonspecific Chest Pain, Adult, [id number] [facility] Forms: - Medication Reconciliation Form [facility] - Thank You Letter [facility] - Antibiotic Education [facility] - Prescription Opioid Use [facility] Signatures: Dispatcher [employer] Ratna Lopez RN RN aj1 Thomas Monroe MD MD [facility]
[2021-05-16 03:30] VITALS: BP 132/76; TEMP 98.3; O2SAT 99
--- NOTE | 2021-05-16 15:34 | RAD REPORT ---
EXAM DESCRIPTION: CT - Chest For Pe Angio - 05/16/2021 3:33 am CLINICAL HISTORY: 65 years, Female, CHEST PAIN COMPARISON: None TECHNIQUE: Multiple transaxial tomograms of the chest were obtained from the lung apices through the lung bases utilizing 2 mm slice thickness at 2 mm interval reconstruction after the administration o f large bolus of IV contrast for complete opacification of the pulmonary arteries. Subsequent 3-D maximum intensity projection images were generated in the coronal and sagittal plane f or review. This exam was performed according to our departmental dose-optimization protocol, which includes auto mated exposure control, adjustment of the mA and/or kV according to patient size and/or use of iterat crow reconstruction technique. FINDINGS: The lungs parenchyma demonstrate to be clear. No masses, nodules and/or consolidations are identified. Minimal dependent atelectatic changes. There is no evidence for pneumothorax. The trachea mainstem bronchus demonstrate to be normal. There is no significant pericardial or pleura l effusions. The thoracic aorta demonstrate minimal intimal calcification at the aortic arch and descending portio n. There is no evidence for significant dissection and/or aneurysm. The heart is normal in size. No e vidence for right ventricular strain. There are no significant coronary artery calcifications There is no significant mediastinal and/or hilar lymphadenopathy. The axillary regions demonstrate to be clear. Pulmonary arteries demonstrate to be normal, no intraluminal defect are seen that would suggest pulmo nary embolus. The bone windows demonstrate mild diffuse bony osteopenia. Minimal anterior spondylos is lower thoracic spine. Visualized portions of the upper abdomen demonstrate no gross abnormalities. IMPRESSION: No evidence for pulmonary embolism and/or thoracic aortic dissection. Minimal dependent atelectatic changes. Electronically signed by: Homero Borja MD 05/15/2021 11:54 PM PARTS FACILITATOR Due to temporary technical issues with the PACS/Fluency reporting system, reports are being signed by the in house radiologists without review as a courtesy to insure prompt reporting. The interpreting radiologist is fully responsible for the content of the report.
== END 2021-05-16 03:24 | disposition home or self-care (01) ==
LOC: ER 20:34
DX: R07.89 Other chest pain (principal); I10 Essential (primary) hypertension; F41.9 Anxiety disorder, unspecified; Z79.82 Long term (current) use of aspirin
CPT/HCPCS: 93005; 85025; 80048; 36415 ×2; 83735; 85610; 80076; 84484 ×2; 83880; 71275; 71045; 96375; 96374; 99284; Q9967; J2270; J2405

== ENCOUNTER 2021-06-09 08:23 | Day surgery (SDC) | payer OTHER ==
[2021-06-06 10:15] LABS: Absolute Lymphocytes (CBC) 1.4 K/uL (0.7-4.9); Basophils % 0.6 % (0-1.3); Hematocrit 34.1 % (36.0-45.0); Lymphocytes % 33.4 % (15.3-44.8); MPV 7.3 fL (7.6-11.3); RBC Red Blood Cell Count 3.48 M/uL (3.86-4.86)
[2021-06-06 10:18] LABS: Protime INR 0.99
--- NOTE | 2021-06-06 10:20 | EKG ---
Test Date: 2021-06-06 Test Time: 09:39:30 Manager Software Development: JENI MEASUREMENT RESULTS: Intervals: Rate: 48 MO: 188 QRSD: 82 QT: 428 QTc: 382 [place]: P: 72 MO: 188 QRS: 50 T: 57 INTERPRETIVE STATEMENTS: Marked sinus bradycardia with occasional premature ventricular complexes Abnormal ECG Compared to ECG 05/15/2021 21:00:31 Ventricular premature complex(es) now present Electronically Signed On 06-06-21 10:19:27 INTRAMURAL DIRECTOR by Bret Henriquez
[2021-06-09] MEDS ORDERED: NA CHLORIDE 0.9% 500 ML ONE (08:25)
[2021-06-09] MEDS ORDERED: MIDAZOLAM HCL 2 MG/2 ML INJ ONE (08:27)
[2021-06-09] MEDS ORDERED: NA CHLORIDE 0.9% 0 ML ONE (08:28)
[2021-06-09] MEDS ORDERED: FENTANYL CITR 100 MCG/2 ML ONE (08:28)
[2021-06-09] MEDS ORDERED: ATROPINE SULF 1 MG/10 ML SYR IV ONE (08:28)
[2021-06-09] MEDS ORDERED: HEPA 1000U/500MLS 1,000 UNIT/500 ML BAG IV ONE (08:29)
[2021-06-09 10:08] VITALS: TEMP 97.3; O2SAT 99
--- NOTE | 2021-06-09 11:06 | OP ---
Surgeon: Bret Henriquez MD Admitted to the photofinishing laboratory worker as an outpatient for abnormal stress test, palpitation, atypical chest pain, and shortness of breath. Procedure In Detail: In the photofinishing laboratory worker, she was prepped and draped in the routine sterile fashion. Gi erlinda Versed for sedation as well as fentanyl. A 10 cc of Xylocaine was used to numb the groin on the right side. A 6-Panamanian sheath introduced in the common femoral artery successfully using the [place] er technique. Choco catheter left and right were used to cannulate the left main and right main re spectively. They were 6-[place]ian. She was found to have perfectly normal coronaries. Her distal vess els were tortuous, but there was no evidence of focal stenosis. The patient tolerated the procedure well. There were no complications. Blood Loss: 5 cc. Anesthesia: Total conscious sedation was 30 minutes. Impression And Plan: Atypical chest pain and palpitation with abnormal stress test and positive stre ss test, but normal heart catheterization. We will continue her medical therapy. Angiography in the groin was normal. Angio-Seal was used to close the case. She will stay in the hospital for 2 hours after bed bedrest and she can go home after that. She will see me in the office in the next 2 weeks . DELPHINE/PILY Voice ID: [id number] Report ID: [id number]
[2021-06-09 11:12] VITALS: BP 134/74
== END 2021-06-09 11:20 | disposition home or self-care (01) ==
LOC: CCL 08:23
DX: R94.39 Abnormal result of other cardiovascular function study (principal); R07.89 Other chest pain; R00.2 Palpitations; R06.02 Shortness of breath; I10 Essential (primary) hypertension; Z88.8 Allergy status to other drugs, medicaments and biological substances; Z82.49 Family history of ischemic heart disease and other diseases of the circulatory system
CPT/HCPCS: 93005; 85025; 80048; 36415; 85610; 85730; 93454; U0003; C1893; C1760; J2250; J3010; J7040; J1644; J0583